=== PATIENT | female | born 1995 | race Caucasian/White ===

== ENCOUNTER → 2018-06-25 | Outpatient (CLI) | payer SELFPAY ==
[~2018-06-25] MED LIST: CYCL10TA9 PO
--- NOTE | 2018-06-25 15:21 | Diagnostic Imaging Report ---
PROCEDURE: US Non-OB pelvis comp/trans. TECHNIQUE: Multiple realtime grayscale images were obtained of the pelvis in various projections endovaginally. Transabdominal imaging was also performed. INDICATION: Pelvic pain. FINDINGS: The uterus measures 6.8 x 4.1 x 3.5 cm. The endometrium is 6 mm in thickness. No myometrial mass is seen. The right ovary measures 4.2 x 2.4 x 2.4 cm, and the left ovary measures 3.9 x 2.8 x 2.8 cm. Both ovaries contain small follicles. No adnexal mass or free fluid is seen. IMPRESSION: Unremarkable pelvic ultrasound. Dictated by: Dictated on workstation # [id number]
== END ==
LOC: RAD 13:35
PROVIDERS: ATTEND Nurse Practitioner Family
DX: N92.6 Irregular menstruation, unspecified (principal)
CPT/HCPCS: 76830; 76856

== ENCOUNTER 2019-04-21 05:25 | Emergency (ER) | payer SELFPAY ==
[~2019-04-21] VITALS: Ht 170.2 cm; Wt 128.4 kg
--- OUTSIDE RECORDS SUMMARY | 2019-04-21 05:31 | XMS REPORT ---
Author Author Migration, Doctor Organization [facility] Address Unknown Phone Unavailable Care Team Providers Care Fine Wire Drawer Name Role Phone Migration, Doctor Unavailable Unavailable PROBLEMS Type Condition ICD9-CM Code DZH17-AY Code Onset Dates Condition Status SNOMED Code Problem Thrombocytosis D47.3 Active 7347778 Problem Morbid (severe) obesity due to excess calories E66.01 Active 646168578 Problem Mild intermittent asthma without complication J45.20 Active 834604309 Problem Irregular uterine bleeding N92.6 Active 95215866 Problem Insulin resistance E88.81 Active 621719981 Problem Carpal tunnel syndrome on left G56.02 Active 700494400803536 Problem Body mass index (BMI) of 40.0-44.9 in adult Z68.41 Active 516910561 ALLERGIES No Information ENCOUNTERS Encounter Location Date Diagnosis [place] [id number] [place] [address] Feb, Exercise counseling Z71.82 [place] [address] [address] Feb, Exercise counseling Z71.82 [place] [id number] [place] [address] Feb, Exercise counseling Z71.82 [place] [id number] [place] [address] Jan, Exercise counseling Z71.82 [place] [id number] [place] [address] Jan, Exercise counseling Z71.82 [place] [id number] [place] [address] Jan, Insulin resistance E88.81 and Morbid (severe) obesity due to excess calories E66.01 [place] [id number] [place] [address] Dec, BMI 40.0-44.9, adult Z68.41 ; Insulin resistance E88.81 ; Morbid (severe) obesity due to excess calories E66.01 and Mild intermittent asthma without complication J45.20 [place] [id number] [place] [address] 05 Jul, 2018 Cough R05 ; Seasonal allergic rhinitis, unspecified trigger J30.2 and BMI 40.0-44.9, adult Z68.41 [place] [address] [address] 28 Jun, 2018 Acute bronchitis, unspecified organism J20.9 ; Screening for tuberculosis Z11.1 ; Body mass index (BMI) of 40.0-44.9 in adult Z68.41 and Morbid (severe) obesity due to excess calories E66.01 [place] [id number] [place] [address] May, Irregular uterine bleeding N92.6 ; Carpal tunnel syndrome on left G56.02 and BMI 40.0-44.9, adult Z68.41 [place] [address] [address] March, Left facial numbness R20.0 ; Neck pain M54.2 and BMI 40.0-44.9, adult Z68.41 [place] [id number] [place] [address] Dec, [place] [address] [address] Nov, Insulin resistance E88.81 ; Obesity (BMI 30-39.9) E66.9 ; Irregular uterine bleeding N92.6 and Thrombocytosis D47.3 [place] [id number] [place] [address] Nov, Insulin resistance E88.81 ; Obesity (BMI 30-39.9) E66.9 ; Irregular uterine bleeding N92.6 and Thrombocytosis D47.3 [facility] [id number] [place] [address] Oct, Sore throat J02.9 and Acute non-recurrent maxillary sinusitis J01.00 [place] [id number] [place] [address] 10 Sep, 2017 Encounter for immunization Z23 [address] [address] 08 Jul, 2017 Exposure to STD Z20.2 ; Unprotected sexual intercourse Z72.51 and Obesity (BMI 30-39.9) E66.9 [place] [address] [address] Jul, [place] [address] [address] Apr, [place] [address] [address] March, Insulin resistance E88.81 ; 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 and Morbid (severe) obesity due to excess calories E66.01 [place] [address] [address] Jan, Acute pain of left knee M25.562 and Morbid (severe) obesity due to excess calories E66.01 [place] [id number] [place] [address] Dec, Morbid (severe) obesity due to excess calories E66.01 ; Insulin resistance E88.81 ; 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 and Irregular uterine bleeding N92.6 [facility] [id number] [place] [address] Jul, Asthma exacerbation J45.901 [place] [id number] [place] [address] Jun, [place] [address] [address] May, Insulin resistance E88.81 ; Body mass index (BMI) of 40.0-44.9 in adult Z68.41 and 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 [facility] [id number] [place] [address] May, [facility] [id number] [place] [address] March, [facility] [id number] [place] [address] March, Routine health maintenance Z00.00 ; Body mass index (BMI) of 40.0- 44.9 in adult Z68.41 ; Morbid (severe) obesity due to excess calories E66.01 ; Family history of diabetes mellitus Z83.3 ; Family history of cancer Z80.9 ; Family history of heart disease Z82.49 ; Encounter for oral contraception initial prescription Z30.011 and Irregular uterine bleeding N92.6 [place] [id number] [place] [address] March, Sinusitis 473.9 and Allergic rhinitis 477.9 [place] [id number] [place] [address] Feb, [place] [id number] [place] [address] Feb, [place] [address] [address] Jul, [facility] [id number] [place] [address] Jul, [place] [id number] [place] [address] Jun, [place] [id number] [place] [address] Jun, [facility] [address], [place] [address] Oct, [facility] [id number] [place] [address] Oct, [facility] [address] [id number] [place] [address] Aug, [facility] [address] [id number] [place] [address] Aug, [facility] [address] [id number] [place] [address] Aug, [facility] [address] [id number] [place] [address] Aug, [facility] [address] [id number] [place] [address] Aug, [facility] [address] [id number] [place] [address] Aug, [facility] [address] [id number] [place] [address] Jul, [facility] [address] [id number] [place] [address] Nov, [facility] [address] [id number] [place] [address] Nov, [facility] [address] [id number] [place] [address] Nov, [facility] [address] [id number] [place] [address] Aug, [facility] [address] [id number] [place] [address] Jun, [facility] [place] [facility] [address] [id number] [place] [address] Jun, [facility] [place] [facility] [address] [id number] [place] [address] Apr, [facility] [address] [id number] [place] [address] Feb, [facility] [address] [facility] [id number] [place] [address] Feb, [facility] [address] [facility] [id number] [place] [address] Nov, [facility] [address] [facility] [id number] [place] [address] Nov, IMMUNIZATIONS No Known Immunizations SOCIAL HISTORY Never Assessed REASON FOR VISIT EMR-[facility] PLAN OF CARE VITAL SIGNS MEDICATIONS Unknown Medications RESULTS No Results PROCEDURES No Known procedures INSTRUCTIONS MEDICATIONS ADMINISTERED No Known Medications MEDICAL (GENERAL) HISTORY Type Description Date Medical History ASTHMA Medical History PCOS Medical History Carpal tunnel- left wrist Medical History Hyperhidrosis Surgical History No know Surgical history
--- OUTSIDE RECORDS SUMMARY | 2019-04-21 05:31 | XMS REPORT ---
Author Author Migration, Doctor Organization [facility] Address Unknown Phone Unavailable Care Team Providers Care Driver Helper Name Role Phone Migration, Doctor Unavailable Unavailable PROBLEMS Type Condition ICD9-CM Code GNZ46-FS Code Onset Dates Condition Status SNOMED Code Problem Thrombocytosis D47.3 Active 4086876 Problem Morbid (severe) obesity due to excess calories E66.01 Active 827183504 Problem Mild intermittent asthma without complication J45.20 Active 609099292 Problem Irregular uterine bleeding N92.6 Active 00552543 Problem Insulin resistance E88.81 Active 133378642 Problem Carpal tunnel syndrome on left G56.02 Active 976189926967428 Problem Body mass index (BMI) of 40.0-44.9 in adult Z68.41 Active 657548291 ALLERGIES No Information ENCOUNTERS Encounter Location Date Diagnosis [place] [id number] [place] [address] Feb, Exercise counseling Z71.82 [place] [address] [address] Feb, Exercise counseling Z71.82 [place] [id number] [place] [address] Feb, Exercise counseling Z71.82 [place] [id number] [place] [address] Jan, Exercise counseling Z71.82 [place] [id number] [place] [address] Jan, Exercise counseling Z71.82 [place] [address] [address] Jan, Insulin resistance E88.81 and Morbid (severe) obesity due to excess calories E66.01 [place] [id number] [place] [address] Dec, BMI 40.0-44.9, adult Z68.41 ; Insulin resistance E88.81 ; Morbid (severe) obesity due to excess calories E66.01 and Mild intermittent asthma without complication J45.20 [place] [id number] [place] [address] 05 Jul, 2018 Cough R05 ; Seasonal allergic rhinitis, unspecified trigger J30.2 and BMI 40.0-44.9, adult Z68.41 [place] [address] [address] 28 Jun, 2018 Acute bronchitis, unspecified organism J20.9 ; Screening for tuberculosis Z11.1 ; Body mass index (BMI) of 40.0-44.9 in adult Z68.41 and Morbid (severe) obesity due to excess calories E66.01 [place] [id number] [place] [address] May, Irregular uterine bleeding N92.6 ; Carpal tunnel syndrome on left G56.02 and BMI 40.0-44.9, adult Z68.41 [place] [address] [address] March, Left facial numbness R20.0 ; Neck pain M54.2 and BMI 40.0-44.9, adult Z68.41 [place] [id number] [place] [address] Dec, [place] [address] [address] Nov, Insulin resistance E88.81 ; Obesity (BMI 30-39.9) E66.9 ; Irregular uterine bleeding N92.6 and Thrombocytosis D47.3 [place] [id number] [place] [address] Nov, Insulin resistance E88.81 ; Obesity (BMI 30-39.9) E66.9 ; Irregular uterine bleeding N92.6 and Thrombocytosis D47.3 [facility] [id number] [place] [address] Oct, Sore throat J02.9 and Acute non-recurrent maxillary sinusitis J01.00 [place] [id number] [place] [address] 10 Sep, 2017 Encounter for immunization Z23 [address] [address] 08 Jul, 2017 Exposure to STD Z20.2 ; Unprotected sexual intercourse Z72.51 and Obesity (BMI 30-39.9) E66.9 [place] [address] [address] Jul, [place] [address] [address] Apr, [place] [address] [address] March, Insulin resistance E88.81 ; 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901 [place] [id number] [place] [address] Jun, [place] [address] [address] May, Insulin resistance E88.81 ; Body mass index (BMI) of 40.0-44.9 in adult Z68.41 and 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 [facility] [id number] [place] [address] May, [facility] [address] [place] [address] March, [facility] [id number] [place] [address] March, Routine health maintenance Z00.00 ; Body mass index (BMI) of 40.0- 44.9 in adult Z68.41 ; Morbid (severe) obesity due to excess calories E66.01 ; Family history of diabetes mellitus Z83.3 ; Family history of cancer Z80.9 ; Family history of heart disease Z82.49 ; Encounter for oral contraception initial prescription Z30.011 and Irregular uterine bleeding N92.6 [place] [id number] [place] [address] March, Sinusitis 473.9 and Allergic rhinitis 477.9 [place] [id number] [place] [address] Feb, [place] [id number] [place] [address] Feb, [place] [address] [address] Jul, [facility] [id number] [place] [address] Jul, [place] [address] [place] [address] Jun, [place] [address] [place] [address] Jun, [facility] [address] [address] Oct, [facility] [id number] [address] Oct, [facility] [address] [id number] [place] [address] Aug, [facility] [address] [id number] [place] [address] Aug, [facility] [address] [id number] [place] [address] Aug, [facility] [address] [id number] [place] [address] Aug, [facility] [address] [id number] [place] [address] Aug, [facility] [address] [id number] [place] [address] Aug, [facility] [address] [id number] [place] [address] Jul, [facility] [address] [id number] [place] [address] Nov, [facility] [address] [id number] [place] [address] Nov, [facility] [address] [id number] [place] [address] Nov, [facility] [address] [id number] [place] [address] Aug, [facility] [address] [id number] [place] [address] Jun, [facility] [place] [facility] [address] [id number] [place] [address] Jun, [facility] [place] [facility] [address] [id number] [place] [address] Apr, [facility] [address] [id number] [place] [address] Feb, [facility] [address] [facility] [id number] [place] [address] Feb, [facility] [address] [facility] [id number] [place] [address] Nov, [facility] [address] [facility] [id number] [place] [address] Nov, IMMUNIZATIONS No Known Immunizations SOCIAL HISTORY Never Assessed REASON FOR VISIT [place] [place] VITAL SIGNS MEDICATIONS Unknown Medications RESULTS No Results PROCEDURES No Known procedures INSTRUCTIONS MEDICATIONS ADMINISTERED No Known Medications MEDICAL (GENERAL) HISTORY Type Description Date Medical History ASTHMA Medical History PCOS Medical History Carpal tunnel- left wrist Medical History Hyperhidrosis Surgical History No know Surgical history
--- OUTSIDE RECORDS SUMMARY | 2019-04-21 05:32 | XMS REPORT ---
Author Author FELTON GALVEZ Organization [facility] Address [address] [place] [address] Care Team Providers Care Section Housekeeper Name Role Phone LEONOR FELTON Unavailable PROBLEMS Type Condition ICD9-CM Code [id number] Code Onset Dates Condition Status SNOMED Code Problem Morbid (severe) obesity due to excess calories E66.01 Active 099882098 Problem Body mass index (BMI) of 40.0-44.9 in adult Z68.41 Active 255107901 Problem Irregular uterine bleeding N92.6 Active 93407861 Problem Thrombocytosis D47.3 Active 4831676 Problem Carpal tunnel syndrome on left G56.02 Active 965838537232457 Problem Insulin resistance E88.81 Active 107101161 ALLERGIES No Known Allergies ENCOUNTERS Encounter Location Date Diagnosis [facility] [id number] [place] [address] Jul, Cough R05 ; Seasonal allergic rhinitis, unspecified trigger J30.2 and BMI 40.0-44.9, adult Z68.41 [facility] [id number] [place] [address] Jun, Acute bronchitis, unspecified organism J20.9 ; Screening for tuberculosis Z11.1 ; Body mass index (BMI) of 40.0-44.9 in adult Z68.41 and Morbid (severe) obesity due to excess calories E66.01 [facility] [id number] [place] [address] May, Irregular uterine bleeding N92.6 ; Carpal tunnel syndrome on left G56.02 and BMI 40.0-44.9, adult Z68.41 [facility] [address] [place] [address] March, Left facial numbness R20.0 ; Neck pain M54.2 and BMI 40.0-44.9, adult Z68.41 [facility] [address] [address] Dec, [place] [address] [address] Nov, Insulin resistance E88.81 ; Obesity (BMI 30-39.9) E66.9 ; Irregular uterine bleeding N92.6 and Thrombocytosis D47.3 [place] [address] [address] Nov, Insulin resistance E88.81 ; Obesity (BMI 30-39.9) E66.9 ; Irregular uterine bleeding N92.6 and Thrombocytosis D47.3 [facility] [address] [address] Oct, Sore throat J02.9 and Acute non-recurrent maxillary sinusitis J01.00 [place] [id number] [place] [address] 10 Sep, 2017 Encounter for immunization Z23 [address] [address] 08 Jul, 2017 Exposure to STD Z20.2 ; Unprotected sexual intercourse Z72.51 and Obesity (BMI 30-39.9) E66.9 [place] [address] [address] Jul, [place] [address] [address] Apr, [address] [address] March, Insulin resistance E88.81 ; 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 and Morbid (severe) obesity due to excess calories E66.01 [place] [id number] [place] [address] 30 Mar, 2017 Acute pain of left knee M25.562 and Morbid (severe) obesity due to excess calories E66.01 [facility] [address] [place] [address] 09 Dec, 2016 Morbid (severe) obesity due to excess calories E66.01 ; Insulin resistance E88.81 ; 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 and Irregular uterine bleeding N92.6 [facility] [id number] [place] [address] Jul, Asthma exacerbation J45.901 [facility] [id number] [place] [address] Jun, [place] [id number] [place] [address] May, Insulin resistance E88.81 ; Body mass index (BMI) of 40.0-44.9 in adult Z68.41 and 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 [place] [id number] [place] [address] May, [facility] [id number] [place] [address] March, [place] [id number] [place] [address] March, Routine health maintenance Z00.00 ; Body mass index (BMI) of 40.0- 44.9 in adult Z68.41 ; Morbid (severe) obesity due to excess calories E66.01 ; Family history of diabetes mellitus Z83.3 ; Family history of cancer Z80.9 ; Family history of heart disease Z82.49 ; Encounter for oral contraception initial prescription Z30.011 and Irregular uterine bleeding N92.6 [place] [id number] [place] [address] March, Sinusitis 473.9 and Allergic rhinitis 477.9 [place] [id number] [place] [address] Feb, [place] [address] [place] [id number] [address] 13 Feb, 2015 [facility] [address] [id number] [place] [address] 18 Jul, 2014 [facility] [place] [facility] [address] [id number] [place] [address] Jul, [facility] [address] [id number] [place] [address] Jun, [facility] [place] [facility] [address] [id number] [place] [address] Jun, [facility] [address] [id number] [place] [address] Oct, [facility] [address] [id number] [place] [address] Oct, [facility] [address] [id number] [place] [address] Aug, [facility] [address] [id number] [place] [address] Aug, [facility] [place] [facility] [address] [id number] [place] [address] Aug, [facility] [address] [id number] [place] [address] 18 Aug, 2013 [facility] [place] [facility] [address] [id number] [place] [address] Aug, [facility] [address] [id number] [place] [address] Aug, [facility] [place] [facility] [address] [id number] [place] [address] Jul, [facility] [place] [facility] [address] [id number] [place] [address] Nov, [facility] [place] [facility] [address] [id number] [place] [address] Nov, [facility] [id number] [address] Nov, [facility] [address] [address] Aug, [facility] [id number] [address] Jun, [facility] [address] [address] Jun, [facility] [id number] [address] Apr, [facility] [address] [address] Feb, [facility] [address] [address] Feb, [facility] [address] [address] Nov, [facility] [id number] [address] Nov, IMMUNIZATIONS No Known Immunizations SOCIAL HISTORY Never Assessed REASON FOR VISIT Pt states that she seen Hortencia last week for sinus infection but it has not go tten any better. She states she is so congested that when she tries to lay down she feels like she can't breath. JOLANTA Vilchis, pt needs a new script for her Albu terol inhaler. (she states not the powder one , she needs the one with the mist) JOLANTA Vilchis PLAN OF CARE Activity Details Follow Up 1-2 weeks if not better Reason:cough VITAL SIGNS Height 67 in 2018-07-28 Weight 266.0 lbs 2018-07-28 Temperature 98.8 degrees Fahrenheit 2018-07-28 Heart Rate 91 bpm 2018-07-28 Respiratory Rate 20 2018-07-28 BMI 41.66 kg/m2 2018-07-28 Blood pressure systolic 128 mmHg 2018-07-28 Blood pressure diastolic 78 mmHg 2018-07-28 MEDICATIONS Medication Instructions Dosage Frequency Start Date End Date Duration Status Sudafed 30 MG Orally every 6 hrs 1 tablet as needed 6h Jul, 03 days Active ProAir RespiClick 108 (90 Base) MCG/ACT Inhalation every 4 hrs 1 puff as needed 4h Jul, 12 months Active Fluticasone Propionate 50 MCG/ACT Nasally Once a day 1 spray in each nostril 24h Jul, 30 day(s) Active Benadryl Allergy 25 MG Orally every 8 hrs 1 tablet as needed 8h Active RESULTS Name Result Date Reference Range Xray : Chest 2 View (IN HOUSE) 2018-07-28 PROCEDURES Procedure Date Ordered Result Body Site X-RAY EXAM CHEST 2 VIEWS Jul 28, 2018 INSTRUCTIONS MEDICATIONS ADMINISTERED No Known Medications MEDICAL (GENERAL) HISTORY Type Description Date Medical History ASTHMA Medical History PCOS Medical History Carpal tunnel- left wrist Medical History Hyperhidrosis
--- OUTSIDE RECORDS SUMMARY | 2019-04-21 05:32 | XMS REPORT ---
Author Author Migration, Doctor Organization [facility] Address Unknown Phone Unavailable Care Team Providers Care Small Package And Bundle Sorter Clerk Name Role Phone Migration, Doctor Unavailable Unavailable PROBLEMS Type Condition ICD9-CM Code [id number] Code Onset Dates Condition Status SNOMED Code Problem Thrombocytosis D47.3 Active 8024231 Problem Morbid (severe) obesity due to excess calories E66.01 Active 668905399 Problem Mild intermittent asthma without complication J45.20 Active 226150539 Problem Irregular uterine bleeding N92.6 Active 51894228 Problem Insulin resistance E88.81 Active 059950823 Problem Carpal tunnel syndrome on left G56.02 Active 012913316321630 Problem Body mass index (BMI) of 40.0-44.9 in adult Z68.41 Active 898779615 ALLERGIES No Information ENCOUNTERS Encounter Location Date Diagnosis [place] [id number] [place] [address] Feb, Exercise counseling Z71.82 [place] [address] [address] Feb, Exercise counseling Z71.82 [place] [id number] [place] [address] Feb, Exercise counseling Z71.82 [place] [id number] [place] [address] Jan, Exercise counseling Z71.82 [place] [id number] [place] [address] Jan, Exercise counseling Z71.82 [place] [address] [address] Jan, Insulin resistance E88.81 and Morbid (severe) obesity due to excess calories E66.01 [place] [id number] [place] [address] Dec, BMI 40.0-44.9, adult Z68.41 ; Insulin resistance E88.81 ; Morbid (severe) obesity due to excess calories E66.01 and Mild intermittent asthma without complication J45.20 [place] [id number] [place] [address] 05 Jul, 2018 Cough R05 ; Seasonal allergic rhinitis, unspecified trigger J30.2 and BMI 40.0-44.9, adult Z68.41 [place] [address] [address] 28 Jun, 2018 Acute bronchitis, unspecified organism J20.9 ; Screening for tuberculosis Z11.1 ; Body mass index (BMI) of 40.0-44.9 in adult Z68.41 and Morbid (severe) obesity due to excess calories E66.01 [place] [id number] [place] [address] May, Irregular uterine bleeding N92.6 ; Carpal tunnel syndrome on left G56.02 and BMI 40.0-44.9, adult Z68.41 [place] [address] [address] March, Left facial numbness R20.0 ; Neck pain M54.2 and BMI 40.0-44.9, adult Z68.41 [place] [id number] [place] [address] Dec, [place] [address] [address] Nov, Insulin resistance E88.81 ; Obesity (BMI 30-39.9) E66.9 ; Irregular uterine bleeding N92.6 and Thrombocytosis D47.3 [place] [id number] [place] [address] Nov, Insulin resistance E88.81 ; Obesity (BMI 30-39.9) E66.9 ; Irregular uterine bleeding N92.6 and Thrombocytosis D47.3 [facility] [id number] [place] [address] Oct, Sore throat J02.9 and Acute non-recurrent maxillary sinusitis J01.00 [place] [id number] [place] [address] 10 Sep, 2017 Encounter for immunization Z23 [address] [address] 08 Jul, 2017 Exposure to STD Z20.2 ; Unprotected sexual intercourse Z72.51 and Obesity (BMI 30-39.9) E66.9 [place] [address] [address] Jul, [place] [address] [address] Apr, [place] [address] [address] March, Insulin resistance E88.81 ; 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 [facility] [id number] [place] [address] May, [facility] [address] [place] [address] March, [facility] [id number] [place] [address] March, Routine health maintenance Z00.00 ; Body mass index (BMI) of 40.0- 44.9 in adult Z68.41 ; Morbid (severe) obesity due to excess calories E66.01 ; Family history of diabetes mellitus Z83.3 ; Family history of cancer Z80.9 ; Family history of heart disease Z82.49 ; Encounter for oral contraception initial prescription Z30.011 and Irregular uterine bleeding N92.6 [place] [id number] [place] [address] March, Sinusitis 473.9 and Allergic rhinitis 477.9 [place] [id number] [place] [address] Feb, [place] [id number] [place] [address] Feb, [place] [address] [address] Jul, [facility] [id number] [place] [address] Jul, [place] [address] [place] [address] Jun, [place] [address] [place] [address] Jun, [facility] [address] [address] Oct, [facility] [id number] [place] [address] Oct, [facility] [address] [id number] [place] [address] Aug, [facility] [address] [id number] [place] [address] Aug, [facility] [address] [id number] [place] [address] Aug, [facility] [address] [id number] [place] [address] Aug, [facility] [address] [id number] [place] [address] Aug, [facility] [address] [id number] [place] [address] Aug, [facility] [address] [id number] [place] [address] Jul, [facility] [address] [id number] [place] [address] Nov, [facility] [address] [id number] [place] [address] Nov, [facility] [address] [id number] [place] [address] Nov, [facility] [address] [id number] [place] [address] Aug, [facility] [address] [id number] [place] [address] Jun, [facility] [place] [facility] [address] [id number] [place] [address] Jun, [facility] [place] [facility] [address] [id number] [place] [address] Apr, [facility] [address] [id number] [place] [address] Feb, [facility] [address] [facility] [id number] [place] [address] Feb, [facility] [address] [facility] [id number] [place] [address] Nov, [facility] [address] [facility] [id number] [place] [address] Nov, IMMUNIZATIONS No Known Immunizations SOCIAL HISTORY Never Assessed REASON FOR VISIT [facility] PLAN OF CARE VITAL SIGNS MEDICATIONS Unknown Medications RESULTS No Results PROCEDURES No Known procedures INSTRUCTIONS MEDICATIONS ADMINISTERED No Known Medications MEDICAL (GENERAL) HISTORY Type Description Date Medical History ASTHMA Medical History PCOS Medical History Carpal tunnel- left wrist Medical History Hyperhidrosis Surgical History No know Surgical history
--- OUTSIDE RECORDS SUMMARY | 2019-04-21 05:32 | XMS REPORT ---
Author Author Migration, Doctor Organization [facility] Address Unknown Phone Unavailable Care Team Providers Care Information Assurance Manager Name Role Phone Migration, Doctor Unavailable Unavailable PROBLEMS Type Condition ICD9-CM Code [id number] Code Onset Dates Condition Status SNOMED Code Problem Thrombocytosis D47.3 Active 0707871 Problem Morbid (severe) obesity due to excess calories E66.01 Active 656193183 Problem Mild intermittent asthma without complication J45.20 Active 552896464 Problem Irregular uterine bleeding N92.6 Active 02774544 Problem Insulin resistance E88.81 Active 435318486 Problem Carpal tunnel syndrome on left G56.02 Active 372793070720740 Problem Body mass index (BMI) of 40.0-44.9 in adult Z68.41 Active 158938008 ALLERGIES No Information ENCOUNTERS Encounter Location Date Diagnosis [place] [id number] [place] [address] Jan, Insulin resistance E88.81 and Morbid (severe) obesity due to excess calories E66.01 [place] [id number] [place] [address] 27 Dec, 2018 BMI 40.0-44.9, adult Z68.41 ; Insulin resistance E88.81 ; Morbid (severe) obesity due to excess calories E66.01 and Mild intermittent asthma without complication J45.20 [place] [id number] [place] [address] 05 Jul, 2018 Cough R05 ; Seasonal allergic rhinitis, unspecified trigger J30.2 and BMI 40.0-44.9, adult Z68.41 [place] [id number] [place] [address] Jun, Acute bronchitis, unspecified organism J20.9 ; Screening for tuberculosis Z11.1 ; Body mass index (BMI) of 40.0-44.9 in adult Z68.41 and Morbid (severe) obesity due to excess calories E66.01 [facility] [id number] [place] [address] 27 May, 2018 Irregular uterine bleeding N92.6 ; Carpal tunnel syndrome on left G56.02 and BMI 40.0-44.9, adult Z68.41 [facility] [id number] [place] [address] 10 Mar, 2018 Left facial numbness R20.0 ; Neck pain M54.2 and BMI 40.0-44.9, adult Z68.41 [facility] [id number] [place] [address] Dec, [place] [address] [address] Nov, Insulin resistance E88.81 ; Obesity (BMI 30-39.9) E66.9 ; Irregular uterine bleeding N92.6 and Thrombocytosis D47.3 [place] [address] [address] Nov, Insulin resistance E88.81 ; Obesity (BMI 30-39.9) E66.9 ; Irregular uterine bleeding N92.6 and Thrombocytosis D47.3 [facility] [id number] [place] [address] 16 Oct, 2017 Sore throat J02.9 and Acute non-recurrent maxillary sinusitis J01.00 [place] [id number] [place] [address] 10 Sep, 2017 Encounter for immunization Z23 [address] [address] 08 Jul, 2017 Exposure to STD Z20.2 ; Unprotected sexual intercourse Z72.51 and Obesity (BMI 30-39.9) E66.9 [place] [id number] [place] [address] 08 Jul, 2017 [facility] [address] [place] [address] Apr, [facility] [address] [place] [address] March, Insulin resistance E88.81 ; 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 and Morbid (severe) obesity due to excess calories E66.01 [place] [address] [place] [address] Jan, Acute pain of left knee M25.562 and Morbid (severe) obesity due to excess calories E66.01 [facility] [id number] [place] [address] Dec, Morbid (severe) obesity due to excess calories E66.01 ; Insulin resistance E88.81 ; 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 and Irregular uterine bleeding N92.6 [facility] [id number] [place] [address] Jul, Asthma exacerbation J45.901 [place] [id number] [place] [address] Jun, [place] [id number] [place] [address] May, Insulin resistance E88.81 ; Body mass index (BMI) of 40.0-44.9 in adult Z68.41 and 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 [place] [id number] [place] [address] May, [place] [id number] [place] [address] March, [place] [id number] [place] [address] March, Routine health maintenance Z00.00 ; Body mass index (BMI) of 40.0- 44.9 in adult Z68.41 ; Morbid (severe) obesity due to excess calories E66.01 ; Family history of diabetes mellitus Z83.3 ; Family history of cancer Z80.9 ; Family history of heart disease Z82.49 ; Encounter for oral contraception initial prescription Z30.011 and Irregular uterine bleeding N92.6 [facility] [id number] [place] [address] March, Sinusitis 473.9 and Allergic rhinitis 477.9 [facility] [id number] [place] [address] 14 Feb, 2015 [facility] [id number] [place] [address] Feb, [facility] [id number] [place] [address] Jul, [facility] [id number] [place] [address] Jul, [facility] [id number] [place] [address] Jun, [facility] [id number] [place] [address] Jun, [facility] [id number] [place] [address] Oct, [facility] [id number] [place] [address] Oct, [facility] [address] [place] [address] Aug, [facility] [id number] [place] [address] Aug, [facility] [id number] [place] [address] Aug, [facility] [id number] [place] [address] Aug, [facility] [address] [address] Aug, [facility] [address] [place] [address] Aug, [facility] [address] [place] [address] Jul, [facility] [id number] [address] Nov, [facility] [address] [place] [address] Nov, [facility] [address] [facility] [id number] [address] Nov, [facility] [address] [place] [address] Aug, [facility] [address] [place] [address] Jun, [facility] [address], [place] [address] Jun, [facility] [address] [place] [address] Apr, [facility] [address] [place] [address] Feb, [facility] [id number] [address] Feb, [facility] [address], [place] [address] Nov, [facility] [id number], [place] [address] Nov, IMMUNIZATIONS No Known Immunizations SOCIAL HISTORY [...]
--- OUTSIDE RECORDS SUMMARY | 2019-04-21 05:32 | XMS REPORT ---
Author Author Migration, Doctor Organization [facility] Address Unknown Phone Unavailable Care Team Providers Care Ceiling Insulation Blower Name Role Phone Migration, Doctor Unavailable Unavailable PROBLEMS Type Condition ICD9-CM Code XQY25-JE Code Onset Dates Condition Status SNOMED Code Problem Thrombocytosis D47.3 Active 1005139 Problem Morbid (severe) obesity due to excess calories E66.01 Active 793882887 Problem Mild intermittent asthma without complication J45.20 Active 846016450 Problem Irregular uterine bleeding N92.6 Active 43678989 Problem Insulin resistance E88.81 Active 371098268 Problem Carpal tunnel syndrome on left G56.02 Active 789953338635307 Problem Body mass index (BMI) of 40.0-44.9 in adult Z68.41 Active 154922336 ALLERGIES No Information ENCOUNTERS Encounter Location Date Diagnosis [facility] [id number] [place] [address] Feb, [facility] [id number] [place] [address] Feb, [facility] [id number] [place] [address] Feb, [facility] [id number] [place] [address] Feb, [facility] [id number] [place] [address] Feb, Exercise counseling Z71.82 [facility] [id number] [place] [address] Feb, Exercise counseling Z71.82 [facility] [id number] [place] [address] Jan, Exercise counseling Z71.82 [facility] [id number] [place] [address] Jan, Exercise counseling Z71.82 [place] [id number] [place] [address] Jan, Insulin resistance E88.81 and Morbid (severe) obesity due to excess calories E66.01 [place] [id number] [place] [address] Dec, BMI 40.0-44.9, adult Z68.41 ; Insulin resistance E88.81 ; Morbid (severe) obesity due to excess calories E66.01 and Mild intermittent asthma without complication J45.20 [place] [address] [address] Jul, Cough R05 ; Seasonal allergic rhinitis, unspecified trigger J30.2 and BMI 40.0-44.9, adult Z68.41 [place] [address] [address] Jun, Acute bronchitis, unspecified organism J20.9 ; Screening for tuberculosis Z11.1 ; Body mass index (BMI) of 40.0-44.9 in adult Z68.41 and Morbid (severe) obesity due to excess calories E66.01 [place] [id number] [place] [address] May, Irregular uterine bleeding N92.6 ; Carpal tunnel syndrome on left G56.02 and BMI 40.0-44.9, adult Z68.41 [place] [id number] [place] [address] March, Left facial numbness R20.0 ; Neck pain M54.2 and BMI 40.0-44.9, adult Z68.41 [place] [id number] [place] [address] Dec, [place] [id number] [place] [address] Nov, Insulin resistance E88.81 ; Obesity (BMI 30-39.9) E66.9 ; Irregular uterine bleeding N92.6 and Thrombocytosis D47.3 [place] [id number] [place] [address] Nov, Insulin resistance E88.81 ; Obesity (BMI 30-39.9) E66.9 ; Irregular uterine bleeding N92.6 and Thrombocytosis D47.3 [facility] [place] [address] [address] Oct, Sore throat J02.9 and Acute non-recurrent maxillary sinusitis J01.00 [place] [address] [address] Sep, Encounter for immunization Z23 [place] [address] [address] 08 Jul, 2017 Exposure to STD Z20.2 ; Unprotected sexual intercourse Z72.51 and Obesity (BMI 30-39.9) E66.9 [place] [address] [address] Jul, [place] [address] [address] Apr, [place] [address] [address] March, Insulin resistance E88.81 ; 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 and Morbid (severe) obesity due to excess calories E66.01 [place] [id number] [place] [address] Jan, Acute pain of left knee M25.562 and Morbid (severe) obesity due to excess calories E66.01 [place] [address] [address] 09 Dec, 2016 Morbid (severe) obesity due to excess calories E66.01 ; Insulin resistance E88.81 ; 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 and Irregular uterine bleeding N92.6 [facility] [address] [place] [address] Jul, Asthma exacerbation J45.901 [facility] [id number] [place] [address] Jun, [facility] [id number] [place] [address] May, Insulin resistance E88.81 ; Body mass index (BMI) of 40.0-44.9 in adult Z68.41 and 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 [place] [address] [address] May, [place] [address] [address] March, [place] [address] [address] March, Routine health maintenance Z00.00 ; Body mass index (BMI) of 40.0- 44.9 in adult Z68.41 ; Morbid (severe) obesity due to excess calories E66.01 ; Family history of diabetes mellitus Z83.3 ; Family history of cancer Z80.9 ; Family history of heart disease Z82.49 ; Encounter for oral contraception initial prescription Z30.011 and Irregular uterine bleeding N92.6 [place] [id number] [place] [address] March, Sinusitis 473.9 and Allergic rhinitis 477.9 [place] [id number] [place] [address] Feb, [place] [id number] [place] [address] Feb, [place] [address] [address] Jul, [place] [id number] [place] [address] Jul, [place] [address] [place] [address] Jun, [facility] [address] [id number] [place] [address] Jun, [facility] [place] [facility] [address] [id number] [place] [address] Oct, [facility] [place] [facility] [address] [id number] [place] [address] Oct, [facility] [place] [facility] [address] [id number] [place] [address] Aug, [facility] [place] [facility] [address] [id number] [place] [address] Aug, [facility] [place] [facility] [address] [id number] [place] [address] Aug, [facility] [place] [facility] [address] [id number] [place] [address] Aug, [facility] [place] [facility] [address] [id number] [place] [address] Aug, [facility] [place] [facility] [address] [id number] [place] [address] Aug, [facility] [place] [facility] [address] [id number] [place] [address] Jul, [facility] [place] [facility] [address] [id number] [place] [address] Nov, [facility] [place] [facility] [address] [id number] [address] Nov, [facility] [place] [facility] [address] [id number] [place] [address] Nov, [facility] [place] [facility] [address] [id number] [place] [address] Aug, [facility] [place] [facility] [address] [id number] [place] [address] Jun, [facility] [place] [facility] [address] [facility] [id number] [address] Jun, [facility] [id number] [address] Apr, [facility] [id number] [address] Feb, [facility] [id number] [address] Feb, [facility] [address] [facility] [id number], [place] [address] Nov, [facility] [id number] [address] Nov, IMMUNIZATIONS No Known Immunizations SOCIAL HISTORY Never Assessed REASON FOR [place] [place] VITAL SIGNS MEDICATIONS Medication Instructions Dosage Frequency Start Date End Date Duration Status Medrol (Cresencio) 4 mg take tapering dose of 6-1 Tablet by Oral route 1 per day. Take each days dose at one time Jun, Active Zithromax Z-Cresencio 250 mg 2 tablet by Oral route 1 time per day for 1 days then take 1 tab daily on days 2-5 Jun, Active Flonase 50 mcg/actuation 1 sprays by Nasal route 2 times per day in each nostril Jul, Active PredniSONE 20 mg 2 tablet by Oral route 1 time per day for 5 day(s) Jul, Active Ofloxacin 0.3 % 3 drop by Otic route 2 times per day for 10 day(s) Apr, Active Bactroban 2 % 1 clair by Topical route 2 times per day for 14 day(s) Feb, Active Xerac AC 6.25 % 1 inch by Topical route every dayat night Nov, Active ProAir HFA 90 mcg/actuation inhale 2-4 puffs by Inhalation route every 4 hours as neededPRNshortness of breath/cough always use spacer Jun, Active ZyrTEC 10 mg 1 tablet by Oral route 1 time per day Jun, Active Bactrim DS 800-160 mg 1 tablet by Oral route 2 times per day for 10 day(s) Feb, Active RESULTS No Results PROCEDURES No Known procedures INSTRUCTIONS MEDICATIONS ADMINISTERED No Known Medications MEDICAL (GENERAL) HISTORY Type Description Date Medical History ASTHMA Medical History PCOS Medical History Carpal tunnel- left wrist Medical History Hyperhidrosis Surgical History No know Surgical history
--- OUTSIDE RECORDS SUMMARY | 2019-04-21 05:32 | XMS REPORT ---
Author Author MAAME NIÑO Organization [facility] Address [address] [place] [address] Care Team Providers Care Seed Pelleter Name Role Phone NIÑOMAAME Nash Unavailable PROBLEMS Type Condition ICD9-CM Code RFA85-DY Code Onset Dates Condition Status SNOMED Code Problem Morbid (severe) obesity due to excess calories E66.01 Active 113900999 Problem Body mass index (BMI) of 40.0-44.9 in adult Z68.41 Active 652256212 Problem Irregular uterine bleeding N92.6 Active 98248188 Problem Thrombocytosis D47.3 Active 4501406 Problem Carpal tunnel syndrome on left G56.02 Active 303529927038227 Problem Insulin resistance E88.81 Active 463103864 ALLERGIES No Known Allergies ENCOUNTERS Encounter Location Date Diagnosis [facility] [id number] [place] [address] Jul, Cough R05 ; Seasonal allergic rhinitis, unspecified trigger J30.2 and BMI 40.0-44.9, adult Z68.41 [facility] [id number] [place] [address] Jun, Acute bronchitis, unspecified organism J20.9 ; Screening for tuberculosis Z11.1 ; Body mass index (BMI) of 40.0-44.9 in adult Z68.41 and Morbid (severe) obesity due to excess calories E66.01 [facility] [id number] [place] [address] May, Irregular uterine bleeding N92.6 ; Carpal tunnel syndrome on left G56.02 and BMI 40.0-44.9, adult Z68.41 [facility] [id number] [place] [address] March, Left facial numbness R20.0 ; Neck pain M54.2 and BMI 40.0-44.9, adult Z68.41 [facility] [address] [address] Dec, [place] [address] [address] Nov, Insulin resistance E88.81 ; Obesity (BMI 30-39.9) E66.9 ; Irregular uterine bleeding N92.6 and Thrombocytosis D47.3 [place] [address] [address] Nov, Insulin resistance E88.81 ; Obesity (BMI 30-39.9) E66.9 ; Irregular uterine bleeding N92.6 and Thrombocytosis D47.[address] 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 [id number] [place] [address] March, [place] [id number] [place] [address] March, Routine health maintenance Z00.00 ; Body mass index (BMI) of 40.0- 44.9 in adult Z68.41 ; Morbid (severe) obesity due to excess calories E66.01 ; Family history of diabetes mellitus Z83.3 ; Family history of cancer Z80.9 ; Family history of heart disease Z82.49 ; Encounter for oral contraception initial prescription Z30.011 and Irregular uterine bleeding N92.6 [place] [id number] [place] [address] March, Sinusitis 473.9 and Allergic rhinitis 477.9 [place] [address] [address] Feb, [place] [address] [facility] [id number] [place] [address] Feb, [facility] [address] [id number] [place] [address] 18 Jul, 2014 [facility] [place] [facility] [address] [id number] [place] [address] Jul, [facility] [place] [facility] [address] [id number] [place] [address] Jun, [facility] [place] [facility] [address] [id number] [place] [address] Jun, [facility] [place] [facility] [address] [id number] [place] [address] Oct, [facility] [place] [facility] [address] [id number] [place] [address] Oct, [facility] [place] [facility] [address] [id number] [place] [address] Aug, [facility] [place] [facility] [address] [id number] [place] [address] Aug, [facility] [place] [facility] [address] [id number] [place] [address] Aug, [facility] [place] [facility] [address] [id number] [place] [address] 18 Aug, 2013 [facility] [place] [facility] [address] [id number] [place] [address] Aug, [facility] [place] [facility] [address] [id number] [place] [address] Aug, [facility] [place] [facility] [address] [id number] [place] [address] Jul, [facility] [place] [facility] [address] [id number] [place] [address] Nov, [facility] [place] [facility] [address] [id number] [place] [address] Nov, [facility] [address] [address] [id number] [address] Nov, [facility] [address] [address] Aug, [facility] [address] [address] Jun, [facility] [id number] [address] Jun, [facility] [address] [address] Apr, [facility] [id number] [place] [address] Feb, [facility] [id number] [address] Feb, [facility] [address] [address] Nov, [facility] [address], [place] [address] Nov, IMMUNIZATIONS No Known Immunizations SOCIAL HISTORY Never Assessed REASON FOR VISIT Sinus c/o- Started 1 week ago, coughing up yellow sputum- Amber Bray RN PLAN OF CARE Activity Details Follow Up 3 Months, prn Reason: VITAL SIGNS Height 67 in 2018-07-20 Weight 267 lbs 2018-07-20 Temperature 98.2 degrees Fahrenheit 2018-07-20 Heart Rate 78 bpm 2018-07-20 Respiratory Rate 16 2018-07-20 BMI 41.81 kg/m2 2018-07-20 Blood pressure systolic 110 mmHg 2018-07-20 Blood pressure diastolic 74 mmHg 2018-07-20 MEDICATIONS Medication Instructions Dosage Frequency Start Date End Date Duration Status Benadryl Allergy 25 MG Orally every 8 hrs 1 tablet as needed 8h Active PredniSONE 20 mg Orally Once a day 1 tablet 24h Jun, Jul, 05 days Active ProAir RespiClick 108 (90 Base) MCG/ACT Inhalation every 4 hrs 1 puff as needed 4h Jul, 12 months Active Azithromycin 250 MG Orally Once a day 2 tablets on the first day, then 1 tablet daily for 4 days 24h Jun, Jul, 5 day(s) Active RESULTS No Results PROCEDURES Procedure Date Ordered Result Body Site TB INTRADERMAL 2018-07-20 Negative TB INTRADERMAL TEST Jul 20, 2018 INSTRUCTIONS MEDICATIONS ADMINISTERED No Known Medications MEDICAL (GENERAL) HISTORY Type Description Date Medical History ASTHMA Medical History PCOS Medical History Carpal tunnel- left wrist Medical History Hyperhidrosis
--- OUTSIDE RECORDS SUMMARY | 2019-04-21 05:33 | XMS REPORT ---
Author Author MAAME NIÑO Organization [facility] Address [address] [place] [address] Care Team Providers Care Palliative Medicine Physician Name Role Phone NIÑOMAAME Nash Unavailable PROBLEMS Type Condition ICD9-CM Code CZS16-TK Code Onset Dates Condition Status SNOMED Code Problem Morbid (severe) obesity due to excess calories E66.01 Active 937909452 Problem Body mass index (BMI) of 40.0-44.9 in adult Z68.41 Active 534137835 Problem Irregular uterine bleeding N92.6 Active 29862348 Problem Thrombocytosis D47.3 Active 1097809 Problem Carpal tunnel syndrome on left G56.02 Active 335547643762511 Problem Insulin resistance E88.81 Active 576346512 ALLERGIES No Known Allergies ENCOUNTERS Encounter Location Date Diagnosis [facility] [id number] [place] [address] Jul, Cough R05 ; Seasonal allergic rhinitis, unspecified trigger J30.2 and BMI 40.0-44.9, adult Z68.41 [facility] [id number] [place] [address] Jun, Acute bronchitis, unspecified organism J20.9 ; Screening for tuberculosis Z11.1 ; Body mass index (BMI) of 40.0-44.9 in adult Z68.41 and Morbid (severe) obesity due to excess calories E66.01 [facility] [id number] [place] [address] May, Irregular uterine bleeding N92.6 ; Carpal tunnel syndrome on left G56.02 and BMI 40.0-44.9, adult Z68.41 [facility] [id number] [place] [address] March, Left facial numbness R20.0 ; Neck pain M54.2 and BMI 40.0-44.9, adult Z68.41 [facility] [address] [address] Dec, [place] [address] [address] Nov, Insulin resistance E88.81 ; Obesity (BMI 30-39.9) E66.9 ; Irregular uterine bleeding N92.6 and Thrombocytosis D47.3 [place] [address] [address] Nov, Insulin resistance E88.81 ; Obesity (BMI 30-39.9) E66.9 ; Irregular uterine bleeding N92.6 and Thrombocytosis D47.3 [facility] IN [facility] [address] [address] Oct, Sore throat J02.9 and Acute non-recurrent maxillary sinusitis J01.00 [place] [address] [address] 10 Sep, 2017 Encounter for immunization Z23 [address] [address] 08 Jul, 2017 Exposure to STD Z20.2 ; Unprotected sexual intercourse Z72.51 and Obesity (BMI 30-39.9) E66.9 [place] [address] [address] Jul, [place] [address] [address] Apr, [place] [address] [address] March, Insulin resistance E88.81 ; 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 and Morbid (severe) obesity due to excess calories E66.01 [place] [id number] [place] [address] 30 Mar, 2017 Acute pain of left knee M25.562 and Morbid (severe) obesity due to excess calories E66.01 [facility] [address] [place] [address] Dec, Morbid (severe) obesity due to excess calories E66.01 ; Insulin resistance E88.81 ; 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 and Irregular uterine bleeding N92.6 [facility] [id number] [place] [address] Jul, Asthma exacerbation J45.901 [facility] [id number] [place] [address] Jun, [place] [address] [address] May, Insulin resistance E88.81 ; Body mass index (BMI) of 40.0-44.9 in adult Z68.41 and 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 [place] [id number] [place] [address] May, [facility] [id number] [place] [address] March, [place] [id number] [place] [address] March, Routine health maintenance Z00.00 ; Body mass index (BMI) of 40.0- 44.9 in adult Z68.41 ; Morbid (severe) obesity due to excess calories E66.01 ; Family history of diabetes mellitus Z83.3 ; Family history of cancer Z80.9 ; Family history of heart disease Z82.49 ; Encounter for oral contraception initial prescription Z30.011 and Irregular uterine bleeding N92.6 [place] [id number] [place] [address] March, Sinusitis 473.9 and Allergic rhinitis 477.9 [place] [address] [address] Feb, [place] [address] [facility] [id number] [place] [address] Feb, [facility] [address] [id number] [place] [address] 18 Jul, 2014 [facility] [place] [facility] [address] [id number] [place] [address] Jul, [facility] [place] [facility] [address] [id number] [place] [address] Jun, [facility] [place] [facility] [address] [id number] [place] [address] Jun, [facility] [place] [facility] [address] [id number] [place] [address] Oct, [facility] [place] [facility] [address] [id number] [place] [address] Oct, [facility] [place] [facility] [address] [id number] [place] [address] Aug, [facility] [place] [facility] [address] [id number] [place] [address] Aug, [facility] [place] [facility] [address] [id number] [place] [address] Aug, [facility] [place] [facility] [address] [id number] [place] [address] 18 Aug, 2013 [facility] [place] [facility] [address] [id number] [place] [address] Aug, [facility] [place] [facility] [address] [id number] [place] [address] Aug, [facility] [place] [facility] [address] [id number] [place] [address] Jul, [facility] [place] [facility] [address] [id number] [place] [address] Nov, [facility] [place] [facility] [address] [id number] [place] [address] Nov, [facility] [address], [place] [address] Nov, [facility] [address], [place] [address] Aug, [facility] [address], [place] [address] Jun, [facility] [id number] [place] [address] Jun, [facility] [id number] [place] [address] Apr, [facility] [id number] [place] [address] Feb, [facility] [id number] [place] [address] Feb, [facility] [id number] [place] [address] Nov, [facility] [address] [place] [address] Nov, IMMUNIZATIONS No Known Immunizations SOCIAL HISTORY Never Assessed REASON FOR VISIT irregular periods, last one was 70 days ago. Has fertility questions. Rand Guillermo N, Left hand has sharp pains. PLAN OF CARE Activity Details Follow Up 3 Months, prn Reason:CHM/ VITAL SIGNS Height 67 in 2018-06-18 Weight 267.7 lbs 2018-06-18 Temperature 97.8 degrees Fahrenheit 2018-06-18 Heart Rate 82 bpm 2018-06-18 Respiratory Rate 18 2018-06-18 BMI 41.92 kg/m2 2018-06-18 Blood pressure systolic 102 mmHg 2018-06-18 Blood pressure diastolic 64 mmHg 2018-06-18 MEDICATIONS Medication Instructions Dosage Frequency Start Date End Date Duration Status ProAir RespiClick 108 (90 Base) MCG/ACT Inhalation every 4 hrs 1 puff as needed 4h 24 Jul, 2016 Active RESULTS Name Result Date Reference Range Ultrasound : Pelvic, COMPLETE (REFLEX [id number]) 2018-06-25 PROCEDURES No Known procedures INSTRUCTIONS MEDICATIONS ADMINISTERED No Known Medications MEDICAL (GENERAL) HISTORY Type Description Date Medical History ASTHMA Medical History PCOS Medical History Carpal tunnel- left wrist Medical History Hyperhidrosis
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
--- OUTSIDE RECORDS SUMMARY | 2019-04-21 05:33 | XMS REPORT ---
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 Active 785613344 Problem Irregular uterine bleeding N92.6 Active 50466718 ALLERGIES No Information ENCOUNTERS Encounter Location Date Diagnosis [facility] [address] [address] May, [facility] [address] [address] March, Left facial numbness R20.0 ; Neck pain M54.2 and BMI 40.0-44.9, adult Z68.41 [facility] [id number] [place] [address] Dec, [facility] [address] [address] Nov, Insulin resistance E88.81 ; Obesity (BMI 30-39.9) E66.9 ; Irregular uterine bleeding N92.6 and Thrombocytosis D47.3 [facility] [address] [address] Nov, Insulin resistance E88.81 ; Obesity (BMI 30-39.9) E66.9 ; Irregular uterine bleeding N92.6 and Thrombocytosis D47.3 [facility] [address] [address] Oct, Sore throat J02.9 and Acute non-recurrent maxillary sinusitis J01.00 [place] [id number] [place] [address] 10 Sep, 2017 Encounter for immunization Z23 [facility] [id number] [place] [address] 08 Jul, 2017 Exposure to STD Z20.2 ; Unprotected sexual intercourse Z72.51 and Obesity (BMI 30-39.9) E66.9 [place] [id number] [place] [address] Jul, [place] [id number] [place] [address] Apr, [place] [id number] [place] [address] March, Insulin resistance E88.81 ; 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 and Morbid (severe) obesity due to excess calories E66.01 [place] [id number] [place] [address] Jan, Acute pain of left knee M25.562 and Morbid (severe) obesity due to excess calories E66.01 [place] [id number] [place] [address] Dec, Morbid (severe) obesity due to excess calories E66.01 ; Insulin resistance E88.81 ; 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 and Irregular uterine bleeding N92.6 [facility] [id number] [place] [address] Jul, Asthma exacerbation J45.901 [facility] [id number] [place] [address] Jun, [facility] [id number] [place] [address] May, Insulin resistance E88.81 ; Body mass index (BMI) of 40.0-44.9 in adult Z68.41 and 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 [facility] [id number] [place] [address] May, [facility] [id number] [place] [address] March, [facility] [address] [address] March, Routine health maintenance Z00.00 ; Body mass index (BMI) of 40.0- 44.9 in adult Z68.41 ; Morbid (severe) obesity due to excess calories E66.01 ; Family history of diabetes mellitus Z83.3 ; Family history of cancer Z80.9 ; Family history of heart disease Z82.49 ; Encounter for oral contraception initial prescription Z30.011 and Irregular uterine bleeding N92.6 [place] [id number] [place] [address] 14 Mar, 2015 Sinusitis 473.9 and Allergic rhinitis 477.9 [facility] [id number] [place] [address] Feb, [facility] [id number] [place] [address] 13 Feb, 2015 [facility] [id number] [place] [address] Jul, [facility] [id number] [place] [address] Jul, [facility] [id number] [place] [address] Jun, [facility] [id number] [place] [address] Jun, [facility] [id number] [place] [address] Oct, [facility] [id number] [place] [address] Oct, [facility] [place] [facility] [address] [id number] [place] [address] Aug, [facility] [place] [facility] [address] [id number] [place] [address] Aug, [facility] [place] [facility] [address] [id number] [place] [address] Aug, [facility] [place] [facility] [address] [id number] [place] [address] Aug, [facility] [place] [facility] [address] [id number] [place] [address] Aug, [facility] [place] [facility] [address] [id number] [place] [address] Aug, [facility] [place] [facility] [address] [id number] [place] [address] Jul, [facility] [place] [facility] [address] [id number] [place] [address] Nov, [facility] [place] [facility] [address] [id number] [place] [address] Nov, [facility] [place] [facility] [address] [id number] [place] [address] Nov, [facility] [place] [facility] [address] [id number], [place] [address] Aug, [facility] [place] [facility] [address] [id number], [place] [address] Jun, [facility] [place] [facility] [address] [id number] [place] [address] Jun, [facility] [place] [facility] [address] [id number], [place] [address] Apr, [facility] [place] [facility] [address] [id number] [place] [address] Feb, [facility] [place] [facility] [address] [facility] [id number] [place] [address] Feb, [facility] [address] [facility] [id number] [place] [address] Nov, [facility] [address] [facility] [id number] [place] [address] Nov, IMMUNIZATIONS No Known Immunizations SOCIAL HISTORY Never Assessed REASON FOR VISIT Lab (walk-in) PLAN OF CARE VITAL SIGNS MEDICATIONS Unknown Medications RESULTS No Results PROCEDURES Procedure Date Ordered Result Body Site COMPREHEN METABOLIC PANEL Dec 17, 2017 Hemoglobin Test Send Out 0 dollar Dec 17, 2017 VENIPUNCT, ROUTINE* Dec 17, 2017 COMPLETE CBC W/AUTO DIFF WBC Dec 17, 2017 ASSAY OF INSULIN Dec 17, 2017 ASSAY THYROID STIM HORMONE Dec 17, 2017 LIPID PANEL Dec 17, 2017 INSTRUCTIONS MEDICATIONS ADMINISTERED No Known Medications MEDICAL (GENERAL) HISTORY Type Description Date Medical History ASTHMA Medical History PCOS
--- NOTE | 2019-04-21 05:34 | NUR ---
pt here with " boyfriend". pt alert gc 15. pt started to c/o and points to mid left abd pain 1999 last noc associated with vomiting x 2 and being hot then cold. pt denies nausea now and denies diarrhea. pain rating 9. pt relates last period 5 months ago but that is normal for her. pt denies ua and vaginal c/os. pt also c/o dyspnea and no acute sighns of dyspnea noted. lungs cta bilaterally. abd soft nondistended tender to palpation bilateral lower quads only. done scott pt at 0541.
--- OUTSIDE RECORDS SUMMARY | 2019-04-21 05:34 | XMS REPORT | Continuity of Care Document ---
Author Organization Unknown Address Unknown Allergies There is no data. Medications There is no data. Problems Date Dx Coded Attending Type Code Diagnosis Diagnosed By 12/10/2011 845.00 UNSPECIFIED SITE OF ANKLE SPRAIN 12/10/2011 845.00 UNSPECIFIED SITE OF ANKLE SPRAIN 12/10/2011 ABIEL CARBALLO APRN 845.00 UNSPECIFIED SITE OF ANKLE SPRAIN 12/10/2011 PILY LEE MD 845.00 UNSPECIFIED SITE OF ANKLE SPRAIN 12/10/2011 NONA SANCHES APRN 845.00 UNSPECIFIED SITE OF ANKLE SPRAIN 12/10/2011 ASMUEL REY DO 845.00 UNSPECIFIED SITE OF ANKLE SPRAIN 03/01/2012 684 IMPETIGO 03/01/2012 684 IMPETIGO 03/01/2012 ABIEL CARBALLO APRN R 684 IMPETIGO 03/01/2012 PILY LEE MD 684 IMPETIGO 03/01/2012 NONA SANCHES APRN 684 IMPETIGO 03/01/2012 SAMUEL REY DO 684 IMPETIGO 05/06/2012 380.10 OTITIS EXTERNA LEFT 05/06/2012 V20.2 WELL CHILD 05/06/2012 380.10 OTITIS EXTERNA LEFT 05/06/2012 V20.2 WELL CHILD 05/06/2012 ABIEL CARBALLO APRN R 380.10 OTITIS EXTERNA LEFT 05/06/2012 ABIEL CARBALLO APRN V20.2 WELL CHILD 05/06/2012 PILY LEE MD 380.10 OTITIS EXTERNA LEFT 05/06/2012 PILY LEE MD V20.2 WELL CHILD 05/06/2012 NONA SANCHES APRN 380.10 OTITIS EXTERNA LEFT 05/06/2012 NONA SANCHES APRN N V20.2 WELL CHILD 05/06/2012 SAMUEL REY DO 380.10 OTITIS EXTERNA LEFT 05/06/2012 SAMUEL REY DO V20.2 WELL CHILD 07/19/2012 493.90 ASTHMA UNSPECIFIED 07/19/2012 493.90 ASTHMA UNSPECIFIED 07/19/2012 ABIEL CARBALLO APRN 493.90 ASTHMA UNSPECIFIED 07/19/2012 PILY LEE MD 493.90 ASTHMA UNSPECIFIED 07/19/2012 NONA SANCHES APRN N 493.90 ASTHMA UNSPECIFIED 07/19/2012 SAMUEL REY DO 493.90 ASTHMA UNSPECIFIED 07/20/2012 924.11 CONTUSION OF KNEE 07/20/2012 924.11 CONTUSION OF KNEE 07/20/2012 ABIEL CARBALLO APRN 924.11 CONTUSION OF KNEE 07/20/2012 PILY LEE MD 924.11 CONTUSION OF KNEE 07/20/2012 NONA SANCHES APRN N 924.11 CONTUSION OF KNEE 07/20/2012 SAMUEL REY DO 924.11 CONTUSION OF KNEE 08/26/2012 V03.89 MENINGOCOCCAL DX 08/26/2012 V04.81 FLU DX (3 YRS AND ABOVE, IM) 08/26/2012 V04.89 GARDASIL (HPV) DX 08/26/2012 V05.3 HEP A (PED/ADOL 2-DOSE) DX 08/26/2012 V03.89 MENINGOCOCCAL DX 08/26/2012 V04.81 FLU DX (3 YRS AND ABOVE, IM) 08/26/2012 V04.89 GARDASIL (HPV) DX 08/26/2012 V05.3 HEP A (PED/ADOL 2-DOSE) DX 08/26/2012 ABIEL CARBALLO APRN R V03.89 MENINGOCOCCAL DX 08/26/2012 ABIEL CARBALLO APRN R V04.81 FLU DX (3 YRS AND ABOVE, IM) 08/26/2012 ABIEL CARBALLO APRN R V04.89 GARDASIL (HPV) DX 08/26/2012 ABIEL CARBALLO APRN R V05.3 HEP A (PED/ADOL 2-DOSE) DX 08/26/2012 PILY LEE MD V03.89 MENINGOCOCCAL DX 08/26/2012 PIYL LEE MD V04.81 FLU DX (3 YRS AND ABOVE, IM) 08/26/2012 JESUS GUERRERO, PILY V04.89 GARDASIL (HPV) DX 08/26/2012 PILY LEE MD V05.3 HEP A (PED/ADOL 2-DOSE) DX 08/26/2012 NONA SANCHES APRN N V03.89 MENINGOCOCCAL DX 08/26/2012 NONA SANCHES APRN N V04.81 FLU DX (3 YRS AND ABOVE, IM) 08/26/2012 NONA SANCHES APRN N V04.89 GARDASIL (HPV) DX 08/26/2012 NONA SANCHES APRN N V05.3 HEP A (PED/ADOL 2-DOSE) DX 08/26/2012 SAMUEL REY DO K V03.89 MENINGOCOCCAL DX 08/26/2012 SAMUEL REY DO K V04.81 FLU DX (3 YRS AND ABOVE, IM) 08/26/2012 SAMUEL REY DO K V04.89 GARDASIL (HPV) DX 08/26/2012 SAMUEL REY DO V05.3 HEP A (PED/ADOL 2-DOSE) DX 12/09/2012 278.00 OBESITY 12/09/2012 705.21 PRIMARY FOCAL HYPERHIDROSIS 12/09/2012 278.00 OBESITY 12/09/2012 705.21 PRIMARY FOCAL HYPERHIDROSIS 12/09/2012 ABIEL CARABLLO APRN R 278.00 OBESITY 12/09/2012 ABIEL CARBALLO APRN R 705.21 PRIMARY FOCAL HYPERHIDROSIS 12/09/2012 PILY LEE MD 278.00 OBESITY 12/09/2012 PILY LEE MD 705.21 PRIMARY FOCAL HYPERHIDROSIS 12/09/2012 NONA SANCHES APRN N 278.00 OBESITY 12/09/2012 NONA SANCHES APRN N 705.21 PRIMARY FOCAL HYPERHIDROSIS 12/09/2012 SAMUEL REY DO K 278.00 OBESITY 12/09/2012 SAMUEL REY DO 705.21 PRIMARY FOCAL HYPERHIDROSIS 08/18/2013 ABIEL CARBALLO APRN R 477.9 RHINITIS 08/18/2013 PILY LEE MD 477.9 RHINITIS 08/18/2013 NONA SANCHES APRN 477.9 RHINITIS 08/18/2013 SAMUEL REY DO 477.9 RHINITIS 09/08/2013 JESUS GUERRERO, PILY 783.1 ABNORMAL WEIGHT GAIN 09/08/2013 OJEDANONA ALMANZAR APRN N 783.1 ABNORMAL WEIGHT GAIN 09/08/2013 SAMUEL REY DO 783.1 ABNORMAL WEIGHT GAIN 06/27/2014 OJEDANONA ALMANZAR APRN N 465.9 ACUTE UPPER RESPIRATORY INFECTIONS OF UNSPECIFIED SITE 06/27/2014 OJEDANONA ALMANZAR APRN N 478.19 OTHER DISEASES OF NASAL CAVITY AND SINUSES 06/27/2014 SAMUEL REY DO K 465.9 ACUTE UPPER RESPIRATORY INFECTIONS OF UNSPECIFIED SITE 06/27/2014 SAMUEL REY DO 478.19 OTHER DISEASES OF NASAL CAVITY AND SINUSES 08/10/2014 SAMUEL REY DO V74.1 TB SCREENING Procedures Code [place] [address] ROUTINE VENIPUNCTURE 12/13/2012 86496 CBC 12/13/2012 41324 CMP 12/13/2012 95937 LIPID PANEL 12/13/2012 68016 T4 FREE 12/14/2012 72679 TSH 12/14/2012 41797 INSULIN LEVEL 12/14/2012 35382 ROUTINE VENIPUNCTURE 09/09/2013 42199 PURE TONE HEARING TEST AIR 09/09/2013 64507 CBC 09/09/2013 05488 CMP 09/09/2013 33408 LIPID PANEL 09/09/2013 40916 PROLACTIN 09/09/2013 74403 T4 FREE 09/09/2013 49820 FSH 09/09/2013 09665 LH 09/09/2013 89754 INSULIN LEVEL 09/09/2013 13141 TSH 09/09/2013 05677 A1C (RML) 09/09/2013 84859 TESTOSTERONE-WOMEN & CHILDREN 09/12/2013 76317 TB TEST INTRADERMAL 08/10/2014 Results Test Result Range CULTURE, GENITAL - 07/31/17 14:01 Genital Culture, Routine Final report NRG Result 1 NRG A1C - 12/17/17 08:31 HEMOGLOBIN A1c 5.2 % of total Hgb <5.7 INSULIN LEVEL - 12/17/17 08:31 INSULIN 10.1 uIU/mL 2.0-19.6 Encounters ACCT No. Visit Date/Time Discharge Status Pt. Type Provider Facility Loc./Unit Complaint [id number] 03/02/2019 14:45:00 03/02/2019 23:59:59 CLS Outpatient EDIS GALVEZLUZ [place] [facility] [place] [id number] 12/17/2017 08:20:00 Document Registration [id number] 07/31/2017 13:40:00 Document Registration [id number] 08/10/2014 14:01:00 08/10/2014 23:59:59 CLS Outpatient SAMUEL REY DO [id number] 06/27/2014 10:13:00 06/27/2014 23:59:59 CLS Outpatient NONA SANCHES APRN [id number] 09/09/2013 08:06:00 09/09/2013 23:59:59 CLS Outpatient PILY LEE MD [id number] 08/18/2013 16:18:00 08/18/2013 23:59:59 CLS Outpatient ABIEL CARBALLO APRN [id number] 12/13/2012 08:43:00 12/13/2012 23:59:59 CLS Outpatient [id number] 12/09/2012 15:16:00 12/09/2012 23:59:59 CLS Outpatient
--- OUTSIDE RECORDS SUMMARY | 2019-04-21 05:34 | XMS REPORT ---
Author Author ALFREDO CERVANTES [facility] Address [address] [place] [address] Care Team Providers Care Veterinary Medicine Scientist Name Role Phone ALFREDO CERVANTES Unavailable PROBLEMS Type Condition ICD9-CM Code BIL38-EM Code Onset Dates Condition Status SNOMED Code Problem Obesity (BMI 30-39.9) E66.9 Active 831630351 Problem Insulin resistance E88.81 Active 807489320 Problem Thrombocytosis D47.3 Active 0622341 Problem 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 Active 862055525 Problem Irregular uterine bleeding N92.6 Active 44193622 ALLERGIES No Known Allergies ENCOUNTERS Encounter Location Date Diagnosis [place] [id number] [place] [address] Apr, [place] [address] [address] March, Left facial numbness R20.0 ; Neck pain M54.2 and BMI 40.0-44.9, adult Z68.41 [place] [id number] [place] [address] Dec, [facility] [place] [id number] [place] [address] Nov, Insulin resistance E88.81 ; Obesity (BMI 30-39.9) E66.9 ; Irregular uterine bleeding N92.6 and Thrombocytosis D47.3 [place] [address] [address] Nov, Insulin resistance E88.81 ; Obesity (BMI 30-39.9) E66.9 ; Irregular uterine bleeding N92.6 and Thrombocytosis D47.3 [facility] [address] [place] [address] Oct, Sore throat J02.9 and Acute non-recurrent maxillary sinusitis J01.00 [place] [id number] [place] [address] 10 Sep, 2017 Encounter for immunization Z23 [place] [address] [address] 08 Jul, 2017 Exposure to STD Z20.2 ; Unprotected sexual intercourse Z72.51 and Obesity (BMI 30-39.9) E66.9 [place] [id number] [place] [address] Jul, [place] [address] [address] Apr, [place] [id number] [place] [address] March, Insulin resistance E88.81 ; 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 and Morbid (severe) obesity due to excess calories E66.01 [place] [id number] [place] [address] Jan, Acute pain of left knee M25.562 and Morbid (severe) obesity due to excess calories E66.01 [place] [id number] [place] [address] Dec, Morbid (severe) obesity due to excess calories E66.01 ; Insulin resistance E88.81 ; 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 and Irregular uterine bleeding N92.6 [facility] [id number] [place] [address] Jul, Asthma exacerbation J45.901 [facility] [place] [id number] [place] [address] Jun, [facility] [place] [id number] [place] [address] May, Insulin resistance E88.81 ; Body mass index (BMI) of 40.0-44.9 in adult Z68.41 and 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 [facility] [place] [id number] [place] [address] May, [facility] [place] [id number] [place] [address] March, [facility] [place] [address] [address] March, Routine health maintenance Z00.00 ; Body mass index (BMI) of 40.0- 44.9 in adult Z68.41 ; Morbid (severe) obesity due to excess calories E66.01 ; Family history of diabetes mellitus Z83.3 ; Family history of cancer Z80.9 ; Family history of heart disease Z82.49 ; Encounter for oral contraception initial prescription Z30.011 and Irregular uterine bleeding N92.6 [place] [address] [address] March, Sinusitis 473.9 and Allergic rhinitis 477.9 [facility] [place] [id number] [place] [address] Feb, [place] [address] [address] Feb, [facility] [place] [id number] [place] [address] Jul, [facility] [place] [id number] [place] [address] Jul, [facility] [place] [id number] [place] [address] Jun, [facility] [place] [address] [address] Jun, [facility] [place] [id number] [place] [address] Oct, [facility] [place] [address] [address] Oct, [facility] [place] [facility] [address] [id number] [place] [address] Aug, [facility] [place] [facility] [address] [id number] [place] [address] Aug, [facility] [place] [facility] [address] [id number] [place] [address] Aug, [facility] [place] [facility] [address] [id number] [place] [address] Aug, [facility] [place] [facility] [address] [id number] [place] [address] Aug, [facility] [place] [facility] [address] [id number] [place] [address] Aug, [facility] [place] [facility] [address] [id number] [place] [address] Jul, [facility] [place] [facility] [address] [id number] [place] [address] Nov, [facility] [place] [facility] [address] [id number] [place] [address] Nov, [facility] [place] [facility] [address] [id number] [place] [address] Nov, [facility] [place] [facility] [address] [id number] [address] Aug, [facility] [place] [facility] [address] [id number] [place] [address] Jun, [facility] [place] [facility] [address] [id number] [place] [address] Jun, [facility] [place] [facility] [address] [id number] [place] [address] Apr, [facility] [place] [facility] [address] [id number] [place] [address] Feb, [facility] [place] [facility] [address] [facility] [id number] [place] [address] Feb, [facility] [place] [address] [facility] [id number] [place] [address] Nov, [facility] [place] [address] [facility] [id number] [place] [address] Nov, IMMUNIZATIONS No Known Immunizations SOCIAL HISTORY Never Assessed REASON FOR VISIT runny nose, sore throat, body aches, cough. all started last noc. [email or web address] PLAN OF CARE Activity Details Follow Up if not improving with PCP or reg follow up Reason: VITAL SIGNS Height 67 in 2017-11-07 Weight 242.4 lbs 2017-11-07 Temperature 98.1 degrees Fahrenheit 2017-11-07 Heart Rate 82 bpm 2017-11-07 Respiratory Rate 20 2017-11-07 BMI 37.96 kg/m2 2017-11-07 Blood pressure systolic 116 mmHg 2017-11-07 Blood pressure diastolic 70 mmHg 2017-11-07 MEDICATIONS Medication Instructions Dosage Frequency Start Date End Date Duration Status ProAir RespiClick 108 (90 Base) MCG/ACT Inhalation every 4 hrs 1 puff as needed 4h 24 Jul, 2016 Not-Taking Azithromycin 250 MG Orally Once a day 2 tablets on the first day, then 1 tablet daily for 4 days 24h 5 day(s) Active Flonase 50 MCG/ACT Nasally Once a day 1 spray in each nostril 24h Oct, 30 day(s) Active RESULTS Name Result Date Reference Range STREP A (IN HOUSE) 2017-11-07 STREP A negative Control + Lot # [id number] Exp date 10 22 2018 PROCEDURES Procedure Date Ordered Result Body Site STREP A ASSAY W/OPTIC Nov 07, 2017 INSTRUCTIONS MEDICATIONS ADMINISTERED No Known Medications MEDICAL (GENERAL) HISTORY Type Description Date Medical History ASTHMA Medical History PCOS
--- NOTE | 2019-04-21 06:03 | ED Abdominal Pain ---
General Chief Complaint: Abdominal/GI Problems Stated Complaint: LEFT ABD PAIN & MIDDLE OF STOMACH PAIN,2 HRS OF SL Nursing Triage Note: started 1999 last night. associated with vomiting x 2 Sepsis Screen: No Definite Risk Source of Information: Patient Exam Limitations: No Limitations History of Present Illness Date Seen by Provider: April 21, 2019 Time Seen by Provider: 05:52 Initial Comments Patient presents to ER with significant other and chief complaint of since about 8:00 last night she had some left-sided abdominal and flank pain shooting down towards her left lower quadrant. She had a bowel movement was normal formed and 3 episodes of retching without emesis. She has had subjective fevers and chills sweats and no significant history of trauma surgery or IBD/IBS. She has a history of PCO S but she does not take control. Last period was about 4 months ago. Allergies and Home Medications Allergies Coded Allergies: No Known Drug Allergies (Unverified , 04/02/18) Home Medications Cyclobenzaprine HCl 10 Mg Tablet, 10 MG PO Q8H PRN for SPASMS Prescribed by: VINCENT WILKINSON on 04/03/18 0020 Patient Home Medication List Home Medication List Reviewed: Yes Review of Systems Review of Systems Constitutional: No chills, No diaphoresis EENTM: No Blurred Vision, No Double Vision Respiratory: Denies Cough, Denies Shortness of Air Cardiovascular: Denies Chest Pain, Denies Edema Gastrointestinal: See HPI, Abdominal Pain; Denies Constipated, Denies Diarrhea; Nausea, Vomiting Genitourinary: Denies Burning, Denies Discharge Musculoskeletal: No back pain, No joint pain Past Dgprzdl-Pcgxcm-Ryosuo Hx Patient Social History Alcohol Use: Occasionally Uses Recreational Drug Use: No Smoking Status: Never a Smoker Recent Foreign Travel: No Contact w/Someone Who Travel: No Recent Infectious Disease Expo: No Recent Hopitalizations: No Physical Abuse: No Sexual Abuse: No Past Medical History Surgeries: No Respiratory: Yes Asthma Cardiac: No Neurological: No Genitourinary: No Gastrointestinal: No Musculoskeletal: No Endocrine: No HEENT: No Cancer: No Psychosocial: No Integumentary: No Blood Disorders: No Family Medical History No Pertinent Family Hx Physical Exam Vital Signs Vital Signs - First Documented 04/21/19 05:34 Temp 98.5 Pulse 84 Resp 20 B/P (MAP) 129/74 (92) Pulse Ox 99 O2 Delivery Room Air Capillary Refill : Less Than 3 Seconds Height/Weight/BMI Height: 5'7.00" Weight: 283lbs. oz. 128.248319vo; BMI Method:Stated General Appearance: WD/WN, no apparent distress, obese HEENT: PERRL/EOMI, pharynx normal Respiratory: no respiratory distress, no accessory muscle use Cardiovascular: normal peripheral pulses, regular rate, rhythm, no edema Gastrointestinal: normal bowel sounds, soft, tenderness (mild left upper quadrant and epigastric tenderness as well as suprapubic tenderness) Neurologic/Psychiatric: alert, normal mood/affect, oriented x 3 Progress/Results/Core Measures Results/Orders Lab Results Laboratory Tests Test 04/21/19 06:00 04/21/19 06:08 Range/Units Urine Color YELLOW Urine Clarity CLEAR Urine pH 7 5-9 Urine Specific [place] 1.015 L 1.016-1.022 Urine Protein 2+ H NEGATIVE Urine Glucose (UA) NEGATIVE NEGATIVE Urine Ketones 1+ H NEGATIVE Urine Nitrite NEGATIVE NEGATIVE Urine Bilirubin NEGATIVE NEGATIVE Urine Urobilinogen 1 NORMAL MG/DL Urine Leukocyte Esterase 1+ H NEGATIVE Urine RBC (Auto) NEGATIVE NEGATIVE Urine RBC RARE /HPF Urine WBC 2-5 /HPF Urine Squamous Epithelial Cells 10-25 H /HPF Urine Crystals NONE /LPF Urine Bacteria MODERATE H /HPF Urine Casts NONE /LPF Urine Mucus MODERATE H /LPF Urine Culture Indicated YES White Blood Count 18.1 H 4.3-11.0 10^3/uL Red Blood Count 4.52 4.35-5.85 10^6/uL Hemoglobin 13.1 11.5-16.0 G/DL Hematocrit 38 35-52 % Mean Corpuscular Volume 85 80-99 FL Mean Corpuscular Hemoglobin 29 25-34 PG Mean Corpuscular Hemoglobin Concent 34 32-36 G/DL Red Cell Distribution Width 13.5 10.0-14.5 % Platelet Count 518 H 130-400 10^3/uL Mean Platelet Volume 9.1 7.4-10.4 FL Neutrophils (%) (Auto) 84 H 42-75 % Lymphocytes (%) (Auto) 12 12-44 % Monocytes (%) (Auto) 4 0-12 % Eosinophils (%) (Auto) 0 0-10 % Basophils (%) (Auto) 0 0-10 % Neutrophils # (Auto) 15.2 H 1.8-7.8 X 10^3 Lymphocytes # (Auto) 2.2 1.0-4.0 X 10^3 Monocytes # (Auto) 0.7 0.0-1.0 X 10^3 Eosinophils # (Auto) 0.0 0.0-0.3 10^3/uL Basophils # (Auto) 0.0 0.0-0.1 10^3/uL Neutrophils % (Manual) 85 % Lymphocytes % (Manual) 10 % Monocytes % (Manual) 1 % Eosinophils % (Manual) 0 % Basophils % (Manual) 0 % Band Neutrophils 0 % Reactive Lymphocytes 4 % Blood Morphology Comment NORMAL Sodium Level 138 135-145 MMOL/L Potassium Level 4.2 3.6-5.0 MMOL/L Chloride Level 107 98-107 MMOL/L Carbon Dioxide Level 21 21-32 MMOL/L Anion Gap 10 5-14 MMOL/L Blood Urea Nitrogen 7 7-18 MG/DL Creatinine 0.66 0.60-1.30 MG/DL Estimat Glomerular Filtration Rate > 60 BUN/Creatinine Ratio 11 Glucose Level 120 H 70-105 MG/DL Calcium Level 9.4 8.5-10.1 MG/DL Corrected Calcium 9.3 8.5-10.1 MG/DL Total Bilirubin 0.3 0.1-1.0 MG/DL Aspartate Amino Transf (AST/SGOT) 13 5-34 U/L Alanine Aminotransferase (ALT/SGPT) 13 0-55 U/L Alkaline Phosphatase 107 40-136 U/L C-Reactive Protein High Sensitivity 2.30 H 0.00-0.50 MG/DL Total Protein 7.3 6.4-8.2 GM/DL Albumin 4.1 3.2-4.5 GM/DL Lipase 17 8-78 U/L My Orders Orders - SHANIQUA MCCURDY Cbc With Automated Diff (04/21/19 05:54) Comprehensive Metabolic Panel (04/21/19 05:54) Urine Bedside (04/21/19 05:54) Hs C Reactive Protein (04/21/19 05:54) Lipase (04/21/19 05:54) Manual Differential (04/21/19 06:08) Ct Abdomen/Pelvis W (04/21/19 06:17) Ed Iv/Invasive Line Start (04/21/19 06:17) Ns Iv 1000 Ml (Sodium Chloride 0.9%) (04/21/19 06:17) Iohexol Injection (Omnipaque 350 Mg/Ml 1 (04/21/19 07:00) Received Contrast (Hold Metformin- Contr (04/21/19 07:00) Ns (Ivpb) (Sodium Chloride 0.9% Ivpb Bag (04/21/19 07:00) Medications Given in ED Current Medications Medications Dose Ordered Sig/Shania Route Start Time Stop Time Status Last Admin Dose Admin Iohexol 100 ml ONCE ONCE IV 04/21/19 07:00 04/21/19 07:01 DC 04/21/19 06:55 100 ML Sodium Chloride 100 ml ONCE ONCE IV 04/21/19 07:00 04/21/19 07:01 DC 04/21/19 06:55 80 ML Vital Signs/I&O 04/21/19 05:34 Temp 98.5 Pulse 84 Resp 20 B/P (MAP) 129/74 (92) Pulse Ox 99 O2 Delivery Room Air Blood Pressure Mean: 92 Progress Progress Note : Time: 06:02 Progress Note Patient has a non-surgical abdomen with normal, aseptic vital signs. She is declining anything for pain or nausea at this time. We'll obtain a urinalysis and the lab draw. Seems to have pain all over which could be from a bladder infection or gastroenteritis. 18,000 white count has prompted a CT scan of the abdomen. Patient is resting comfortably not requiring anything for pain or nausea. Diagnostic Imaging Diagonstic Imaging: CT (with contrast) Plain Films/CT/US/NM/MRI: abdomen, pelvis Comments NAME: RODRIGO YOON [facility] REC#: [id number] PT STATUS: REG ER : 1995 PHYSICIAN: SHANIQUA MCCURDY MD ADMIT DATE: 04/21/19/ER Draft Date of Exam:04/21/19 CT ABDOMEN/PELVIS W PROCEDURE: CT abdomen and pelvis with contrast. TECHNIQUE: Multiple contiguous axial images were obtained through the abdomen and pelvis after administration of intravenous contrast. Auto Exposure Controls were utilized during the CT exam to meet ALARA standards for radiation dose reduction. INDICATION: Abdominal pain with nausea and vomiting Lung bases are clear. Liver appears normal. There is a stone in the gallbladder. Common duct is not dilated. Gallbladder wall is not thickened. Pancreas is normal. Spleen is not enlarged. There is a 6 mm calculus in the upper pole of the left kidney. Kidneys and adrenals are otherwise unremarkable. Uterus appears normal. Ovaries appear normal. There is no intraperitoneal free air or free fluid. Small bowel is not dilated. There is no evidence for appendicitis. Colon is unremarkable. IMPRESSION: Nonobstructing left nephrolithiasis. Cholecystolithiasis. No acute abnormalities seen. Dictated on workstation # [id number] Dict: 04/21/19 0704 Trans: 04/21/19 0711 [facility] [id number] Interpreted by: VINCENT STEPHENS MD Electronically signed by: Reviewed: Reviewed by Me Departure Impression Primary Impression: Gastroenteritis Additional Impression: Cholelithiasis Qualified Codes: K80.20 - Calculus of gallbladder without cholecystitis without obstruction Disposition: 01 HOME, SELF-CARE Condition: Stable Departure-Patient Inst. Decision time for Depature: 07:18 Referrals: SAMUEL REY DO (PCP) Primary Care Physician FELTON GALVEZ APRN (Family) Primary Care Physician VIDAL ANDREA DO Patient Instructions: Gallstones (DC) Add. Discharge Instructions: Drink plenty of fluids. Stick to a low fat, high-fiber diet and avoid spicy foods. If you continue to have a lot of symptoms or want to explore elective removal of your gallbladder then you can call and asked for an appointment with the general surgeon Dr. Andrea. All discharge instructions reviewed with patient and/or family. Voiced understanding. Scripts Ondansetron (Ondansetron Odt) 4 Mg Tab.rapdis 4 MG PO Q6H PRN for NAUSEA/VOMITING-1ST LINE, #10 TAB 0 Refills Prov: SHANIQUA MCCURDY 04/21/19 Work/School Note: Work Release Form Date Seen in the Emergency Department: April 21, 2019 Return to Work: April 21, 2019 Restrictions: No Restrictions SHANIQUA MCCURDY April 21, 2019 06:03
[2019-04-21 06:05] LABS: BILIRUBIN,URINE NEGATIVE (NEGATIVE); CLARITY,URINE CLEAR; COLOR,URINE YELLOW; GLUCOSE, URINE (UA) NEGATIVE (NEGATIVE); KETONES,URINE 1+ (NEGATIVE); LEUKOCYTE ESTERASE ,URINE 1+ (NEGATIVE); NITRITE,URINE NEGATIVE (NEGATIVE); PH,URINE 7 (5-9); PROTEIN,URINE 2+ (NEGATIVE); UROBILINOGEN,URINE 1 MG/DL (NORMAL)
--- NOTE | 2019-04-21 06:10 | NUR ---
peripherel stick for labs by me and to lab by me. another nurse did ua hcg.
[2019-04-21 06:13] LABS: BACTERIA,URINE MODERATE /HPF; RBC,URINE RARE /HPF
[2019-04-21 06:15] LABS: BASOPHILS % (AUTO) 0 % (0-10); EOSINOPHILS % (AUTO) 0 % (0-10); HEMATOCRIT 38 % (35-52); HEMOGLOBIN 13.1 G/DL (11.5-16.0); LYMPHOCYTES # (AUTO) 2.2 X 10^3 (1.0-4.0); LYMPHOCYTES % (AUTO) 12 % (12-44); MEAN CORPUSCULAR HEMOGLOBIN 29 PG (25-34); MEAN CORPUSCULAR HGB CONC 34 G/DL (32-36); MEAN CORPUSCULAR VOLUME 85 FL (80-99); MEAN PLATELET VOLUME 9.1 FL (7.4-10.4); MONOCYTES # (AUTO) 0.7 X 10^3 (0.0-1.0); MONOCYTES % (AUTO) 4 % (0-12); NEUTROPHILS # (AUTO) 15.2 X 10^3 (1.8-7.8); NEUTROPHILS % (AUTO) 84 % (42-75); PLATELET COUNT 518 10^3/uL (130-400); RED CELL DISTRIBUTION WIDTH 13.5 % (10.0-14.5); WHITE BLOOD COUNT 18.1 10^3/uL (4.3-11.0)
[2019-04-21] MEDS ORDERED: NS IV 1000 ML 1,000 ML IV SCH (06:17)
[2019-04-21 06:31] LABS: BAND NEUTROPHILS 0 %; BASOPHILS % (MANUAL) 0 %; EOSINOPHILS % (MANUAL) 0 %; LYMPHOCYTES % (MANUAL) 10 %; MONOCYTES % (MANUAL) 1 %; NEUTROPHILS % (MANUAL) 85 %; RBC MORPH NORMAL; REACTIVE LYMPHOCYTES 4 %
--- NOTE | 2019-04-21 06:33 | NUR ---
i will start ns bolus later. pt to ct now.
[2019-04-21 06:49] LABS: ALANINE AMINOTRANSFERASE 13 U/L (0-55); ALBUMIN 4.1 GM/DL (3.2-4.5); ALKALINE PHOSPHATASE 107 U/L (40-136); BILIRUBIN,TOTAL 0.3 MG/DL (0.1-1.0); BUN/CREATININE RATIO 11; CALCIUM 9.4 MG/DL (8.5-10.1); CARBON DIOXIDE 21 MMOL/L (21-32); CHLORIDE 107 MMOL/L (98-107); CREATININE SERUM 0.66 MG/DL (0.60-1.30); GFR ESTIMATED > 60; GLUCOSE 120 MG/DL (70-105); LIPASE 17 U/L (8-78); POTASSIUM 4.2 MMOL/L (3.6-5.0); SODIUM 138 MMOL/L (135-145); TOTAL PROTEIN 7.3 GM/DL (6.4-8.2)
--- NOTE | 2019-04-21 06:57 | NUR ---
report to miguel angel rn. she knows pt still needs bolus.
[2019-04-21] MEDS ORDERED: HOLD METFORMIN - RECEIVED CONTRAST 20 ML VIAL IV SCH (07:00)
[2019-04-21] MEDS ORDERED: NS 100 ML (IVPB) BAG IV ONE (07:00)
[2019-04-21] MEDS ORDERED: IOHEXOL 350 MG/ML 100 ML (OMNIPAQUE 350) VIAL IV ONE (07:00)
--- NOTE | 2019-04-21 07:06 | NUR ---
0700 REPORT AND CARE OF PATIENT FROM LOGAN MARIO. Addendum: 04/21/19 at 0805 by [email or web address] PATIENT RETURN FROM CT PER W/C LAUGHING AND TALKING TO BOOSTER PUMP OPERATOR.
--- NOTE | 2019-04-21 07:11 | Diagnostic Imaging Report ---
PROCEDURE: CT abdomen and pelvis with contrast. TECHNIQUE: Multiple contiguous axial images were obtained through the abdomen and pelvis after administration of intravenous contrast. Auto Exposure Controls were utilized during the CT exam to meet ALARA standards for radiation dose reduction. INDICATION: Abdominal pain with nausea and vomiting Lung bases are clear. Liver appears normal. There is a stone in the gallbladder. Common duct is not dilated. Gallbladder wall is not thickened. Pancreas is normal. Spleen is not enlarged. There is a 6 mm calculus in the upper pole of the left kidney. Kidneys and adrenals are otherwise unremarkable. Uterus appears normal. Ovaries appear normal. There is no intraperitoneal free air or free fluid. Small bowel is not dilated. There is no evidence for appendicitis. Colon is unremarkable. IMPRESSION: Nonobstructing left nephrolithiasis. Cholecystolithiasis. No acute abnormalities seen. Dictated by: Dictated on workstation # [id number]
[2019-04-21] MEDS ORDERED: ONDA4TAB11 PO ×2 (07:20)
[2019-04-21] MEDS ORDERED: KETOROLAC 30 MG/ML VIAL IVP ONE (07:30)
[2019-04-21 07:32] VITALS: BP 136/85
[2019-04-21] MEDS ORDERED: ACHD5005 PO ×2 (18:26)
[2019-04-21] MEDS ORDERED: CEPH-507 PO ×2 (18:26)
== END 2019-04-21 07:32 | disposition home or self-care (01) ==
LOC: EDUNIT# 05:25 → ER 05:27
DX: K52.9 Noninfective gastroenteritis and colitis, unspecified (principal); K80.20 Calculus of gallbladder without cholecystitis without obstruction; J45.909 Unspecified asthma, uncomplicated
CPT/HCPCS: 36415; 74177; 80053; 81000; 83690; 84703; 85007; 85027; 86141; 87088; 96374

== ENCOUNTER 2019-04-21 10:50 | Day surgery (SDC) | payer SELFPAY ==
[2019-04-21] VITALS (15 sets, daily range): BP systolic 107–142; BP diastolic 60–88
[~2019-04-21] VITALS: Ht 170.2 cm; Wt 128.4 kg
[~2019-04-21 10:50] MED LIST changes: +ONDA4TAB11 PO
[2019-04-21] MEDS ORDERED: ONDANSETRON 4 MG/2 ML (SDV) Z0FRAN IVP PRN ×2 (12:15→19:00)
[2019-04-21] MEDS ORDERED: morphine INJ 4 MG/ML 1 ML (VIAL/SYRINGE) IVP PRN (12:15)
--- NOTE | 2019-04-21 12:24 | History & Physical-Surgical ---
History of Present Illness History of Present Illness Reason for visit/HPI Acute Appendicitis, pt was seen in the ER and sent home but the radiology overread called CT with early acute appendicitis. HPI per ED: Patient presents to ER with significant other and chief complaint of since about 8:00 last night she had some left-sided abdominal and flank pain shooting down towards her left lower quadrant. She had a bowel movement was normal formed and 3 episodes of retching without emesis. She has had subjective fevers and chills sweats and no significant history of trauma surgery or IBD/IBS. She has a history of PCOS but she does not take control. Last period was about 4 months ago. When I spoke to pt she stated the pain started after eating Mac and cheese and khmer sausage; has never had pain like this before. She has had small pains before but always thought it was her PCOS; never associated with food. Her significant other states that he noticed she was actually "sluggish and looked sick around 11am" when he came home and was still in bed. She never got better and then it got worse at 8; pain 8 out of 10 which started LUQ and went into RLQ. She was then "up all night vomiting" and finally went to the ER just before 5am. Nothing made pain better except Toradol shot she got in ER. Pain did not radiate anywhere. She was sent home and had a baloney sandwich at 8am this morning, before being called back. ER also noted gallstones on CT. Date of Admission 04/21/2019 Time Seen by a Provider: 11:22 I consulted on this patient on 04/21/19 12:16 Attending Physician Vidal Andrea DO Admitting Physician Miroslava Mosqueda DO Consult Allergies and Home Medications Allergies Coded Allergies: No Known Drug Allergies (Unverified , 04/02/18) Home Medications Cyclobenzaprine HCl 10 Mg Tablet, 10 MG PO Q8H PRN for SPASMS Prescribed by: VINCENT WILKINSON on 04/03/18 0020 Ondansetron 4 Mg Tab.rapdis, 4 MG PO Q6H PRN for NAUSEA/VOMITING-1ST LINE Prescribed by: SHANIQUA MCCURDY on 04/21/19 0720 Patient Home Medication List Home Medication List Reviewed: Yes Past Jglotmm-Trorke-Gmfcbg Hx Patient Social History Alcohol Use: Occasionally Uses Recreational Drug Use: No Smoking Status: Never a Smoker Recent Foreign Travel: No Contact w/Someone Who Travel: No Recent Hopitalizations: No Seasonal Allergies Seasonal Allergies: No Surgeries History of Surgeries: No Respiratory History of Respiratory Disorde: Yes Respiratory Disorders: Asthma Cardiovascular History of Cardiac Disorders: No Neurological History of Neurological Disord: No Reproductive System : No Sexually Transmitted Disease: No Female Reproductive Disorders: Polycystic Ovarian Dis Genitourinary History of Genitourinary Disor: No Gastrointestinal History of Gastrointestinal Di: No Musculoskeletal History of Musculoskeletal Dis: No Endocrine History of Endocrine Disorders: No HEENT History of HEENT Disorders: No Cancer History of Cancer: No Psychosocial History of Psychiatric Problem: No Integumentary History of Skin or Integumenta: No Blood Transfusions History of Blood Disorders: No Family Medical History Significant Family History: No Pertinent Family Hx, COPD (mother), Stroke (father) Review of Systems Constitutional: chills, diaphoresis, malaise, weakness EENTM: No blurred vision, No double vision, No mouth pain, No mouth swelling, No epistaxis, No throat swelling Respiratory: No cough, No dyspnea on exertion, No hemoptysis, No short of breath Cardiovascular: No chest pain, No edema, No palpitations Gastrointestinal: abdominal pain; No diarrhea, No hematemesis, No heartburn, No jaundice Genitourinary: No dysuria, No frequency, No hematuria : No Musculoskeletal: No joint pain, No joint swelling Skin: No change in color, No change in hair/nails Psychiatric/Neurological: Denies Anxiety, Denies Depressed, Denies Seizure, Denies Tremors pt denies any abnormal bleeding or bruising, no heat or cold intolerance Physical Exam Vital Signs Capillary Refill : Height, Weight, BMI Height: 5'7.00" Weight: 283lbs. oz. 128.901003jn; BMI Method:Stated General Appearance: No Apparent Distress, WD/WN, Obese Eyes: Bilateral Eye PERRL, Bilateral Eye EOMI HEENT: Pharynx Normal, Moist Mucous Membranes; No Pale Conjunctivae (L), No Pale Conjunctivae (R) Neck: Full Range of Motion, Normal Inspection, Non Tender, Supple Respiratory: Chest Non Tender, Lungs Clear, Normal Breath Sounds, No Accessory Muscle Use, No Respiratory Distress Cardiovascular: Regular Rate, Rhythm, No Edema, No Murmur Gastrointestinal: Normal Bowel Sounds, No Organomegaly, Soft, Hernia (small umbilical hernia), Tenderness (RLQ mostly and when pressed in other quadrants it hurts in RLQ) Back: Normal Inspection, No CVA Tenderness, No Vertebral Tenderness Extremity: Normal Capillary Refill, Normal Inspection, Non Tender, No Calf Tenderness Neurologic/Psychiatric: Alert, Oriented x3, No Motor/Sensory Deficits, Normal Mood/Affect, cmm inspector II-XII Norm as Tested Skin: Normal Color, Warm/Dry Lymphatic: No Adenopathy (neck, axilla or groin) Assessment/Plan Assessment/Plan Admission Diagonsis Acute Appendicitis Admission Status: Other (Same Day Surgery) Assessment/Plan Acute appendicitis Cholelithiasis without cholecystitis PCOS Pt was in the ED with abdominal pain, nausea and vomiting with an elevated WBC of 18k. CT scan was read initially as no acute process but the over read done in the am came back as early acute appendicitis. I looked at the CT myself and agree that appendix looks enlarged and appears to have some appendicoliths; not sure I see inflammation. I also noted some gallstones, but do not think she has signs of cholecystitis at this time. She may never have gallbladder problems or may have them in a week; however, I don't think there is a good reason to take it out at this time. Plan to do laparoscopic appendectomy possible open, start IV fluids, pain control and antiemetics. She will get ABX just prior to OR. We discussed risks and complications not limited to pain, bleeding, infection, scar, damage to bowel and need for further procedure. All questions answered to her satisfaction. VIDAL ANDREA DO April 21, 2019 12:24
[2019-04-21] MEDS: LACTATED RINGERS 1,000 ML IV SCH ×3 (12:40→18:15)
--- OUTSIDE RECORDS SUMMARY | 2019-04-21 14:30 | XMS REPORT | Continuity of Care Document ---
[...] 845.00 UNSPECIFIED SITE OF ANKLE SPRAIN 12/10/2011 SAMUEL REY DO 845.00 UNSPECIFIED SITE OF ANKLE [...] PILY LEE MD V03.89 MENINGOCOCCAL DX 08/26/2012 PILY LEE MD V04.81 FLU DX (3 YRS [...] 12/09/2012 705.21 PRIMARY FOCAL HYPERHIDROSIS 12/09/2012 ABIEL CARBALLO APRN R 278.00 OBESITY 12/09/2012 ABIEL CARBALLO [...] RESPIRATORY INFECTIONS OF UNSPECIFIED SITE 06/27/2014 OJEDANONA AMLANZAR APRN N 478.19 OTHER DISEASES OF NASAL CAVITY AND SINUSES 06/27/2014 SAMUEL REY DO K 465.9 ACUTE UPPER RESPIRATORY INFECTIONS OF UNSPECIFIED SITE 06/27/2014 SAMUEL REY DO 478.19 OTHER DISEASES OF NASAL CAVITY AND SINUSES 08/10/2014 SAMUEL REY DO V74.1 TB SCREENING Procedures Code [place] [address] ROUTINE VENIPUNCTURE 12/13/2012 67426 CBC 12/13/2012 61485 CMP 12/13/2012 40398 LIPID PANEL 12/13/2012 45320 T4 FREE 12/14/2012 54399 TSH 12/14/2012 28381 INSULIN LEVEL 12/14/2012 87969 ROUTINE VENIPUNCTURE 09/09/2013 07105 PURE TONE HEARING TEST AIR 09/09/2013 72467 CBC 09/09/2013 11508 CMP 09/09/2013 40849 LIPID PANEL 09/09/2013 51356 PROLACTIN 09/09/2013 50278 T4 FREE 09/09/2013 49179 FSH 09/09/2013 51746 LH 09/09/2013 51576 INSULIN LEVEL 09/09/2013 71906 TSH 09/09/2013 12114 A1C (RML) 09/09/2013 99109 TESTOSTERONE-WOMEN & CHILDREN 09/12/2013 72159 TB TEST INTRADERMAL 08/10/2014 Results Test Result Range CULTURE, GENITAL - 07/31/17 14:01 Genital Culture, Routine Final report NRG Result 1 NRG A1C - 12/17/17 08:31 HEMOGLOBIN A1c 5.2 % of total Hgb <5.7 INSULIN LEVEL - 12/17/17 08:31 INSULIN 10.1 uIU/mL 2.0-19.6 Encounters ACCT No. Visit Date/Time Discharge Status Pt. Type Provider Facility Loc./Unit Complaint [id number] 03/02/2019 14:45:00 03/02/2019 23:59:59 CLS Outpatient EDIS GALVEZLUZ [place] [facility] [id number] 12/17/2017 08:20:00 Document Registration [id number] 07/31/2017 13:40:00 Document Registration [id number] 08/10/2014 14:01:00 08/10/2014 23:59:59 CLS Outpatient SAMUEL REY DO [id number] 06/27/2014 10:13:00 06/27/2014 23:59:59 CLS Outpatient NONA SANCHES APRN [id number] 09/09/2013 08:06:00 09/09/2013 23:59:59 CLS Outpatient PILY LEE MD [id number] 08/18/2013 16:18:00 08/18/2013 23:59:59 CLS Outpatient ABIEL CARBALLO APRN [id number] 12/13/2012 08:43:00 12/13/2012 23:59:59 CLS Outpatient [id number] 12/09/2012 15:16:00 12/09/2012 23:59:59 CLS Outpatient
[2019-04-21] MEDS ORDERED: LIDOCAINE 1% INJ 20 ML 20 ML VIAL ONE (15:28)
[2019-04-21] MEDS ORDERED: BUP/EPI 0.5% 1:200,000 (SENSORCAINE) 30 ML VIAL ONE (15:28)
[2019-04-21] MEDS ORDERED: ceFAZolin 2 GM/50 ML NS 50 ML IV ONE (15:30)
[2019-04-21] MEDS ORDERED: MIDAZOLAM 2 MG/2 ML (VERSED) VIAL ONE (17:15)
[2019-04-21] MEDS ORDERED: fentaNYL INJECTION 100 MCG/2 ML AMP ONE (17:15)
[2019-04-21] MEDS ORDERED: SEVOFLURANE (ULTANE) 15 ML INHAL SOLN ONE (17:15)
[2019-04-21] MEDS ORDERED: proPOfol 200 MG/20 ML (DIPRIVAN) VIAL IV ONE (17:15)
[2019-04-21] MEDS ORDERED: ROCURONIUM 10 MG/ML 5 ML SYRINGE IV ONE (17:15)
[2019-04-21] MEDS ORDERED: ONDANSETRON 4 MG/2 ML (SDV) Z0FRAN ONE (17:15)
[2019-04-21] MEDS ORDERED: DEXAMETHASONE 10 MG/ML (DECADRON) 1 ML VIAL ONE (17:15)
[2019-04-21] MEDS ORDERED: HYDROmorphone 2 MG/ML VIAL (DILAUDID) ONE (17:41)
[2019-04-21] MEDS ORDERED: DESFLURANE (SUPRANE) 15 ML INHAL SOLN ONE (17:43)
[2019-04-21] MEDS ORDERED: GLYCOPYRROLATE 0.2 MG/ML (ROBINUL) 2 ML VIAL ONE (17:53)
[2019-04-21] MEDS ORDERED: NEOSTIGMINE 1 MG/ML 5 ML SYRINGE ONE (17:53)
[2019-04-21] MEDS ORDERED: KETOROLAC 30 MG/ML VIAL ONE (18:05)
[2019-04-21] MEDS ORDERED: SUGAMMADEX 500 MG/5 ML VIAL (BRIDION) IV ONE (18:07)
--- NOTE | 2019-04-21 18:15 | Progress Note-Post Operative ---
Post-Operative Progess Note Surgeon (s)/Woven Wood Shade Assembler (s) Surgeon VIDAL ANDREA DO Woven Wood Shade Assembler: none Pre-Operative Diagnosis acute appendicitis Post-Operative Diagnosis Same plus TOA Cholelithiasis Procedure & Operative Findings Date of Procedure 04/21/19 Procedure Performed/Findings Lap Appy Anesthesia Type GET Estimated Blood Loss Estimated blood loss (mL): scant Specimens/Packing Specimens Removed VIDAL Rahman DO April 21, 2019 18:15
[2019-04-21] MEDS ORDERED: CEPH-507 PO ×2 (18:26)
[2019-04-21] MEDS ORDERED: ACHD5005 PO ×2 (18:26)
--- NOTE | 2019-04-21 18:28 | Discharge Inst-Surgical ---
Discharge Inst-Surgical Depart Medication/Instructions New, Converted or Re-Newed RX: RX Given to Pt/Family Patient Instructions Follow up Appt: Make appointment for 1 week. [phone] Instructions: No lifting greater than 20 pounds. No strenuous activity. May shower in 24 hours, no tub bath or soaking. Use incentive spirometer at home as directed. No Smoking Skin/Wound Care: May remove bandages in am. You need to leave the Dermabond on incision it will fall off on it's own. Symptoms to Report: Appetite Changes, Extremity Discoloration, Numbness/Tingling, Swelling Increased, Bleeding Excessive, Eyesight Changes, Pain Increased, Urine Color Change, Constipation(Persistent), Fever over 101 degree F, Pain/Pressure in chest, Urinating Difficulty, Cough Up/Vomit Blood, Heart Beat Irreg/Pounding, Pain/Pressure in jaw, Cramps in feet or legs, Lightheadedness, Pain/Pressure in shoulder, Diarrhea(Persistent), Memory Changes Suddenly, Questions/Concerns, Weight gain consecutive days, Dizziness/Fainting, Nausea/Vomiting, Shortness of Breath, Weight gain over 2 pounds If questions or concerns contact your physician Or seek help at emergency department. Activity Activity as Tolerated: Yes Activity Instructions: Avoid Stress to Incision Diet Discharge Diet: No Restrictions Diet After 24 Hours: Clear Liquid if Nauseous If Any Problems/Questions/Issu: Contact Your Physician, Go to Emergency Room Skin/Wound Care Infection Signs and Symptoms: Increased Redness, Foul Odor of Wound, Increased Drainage, Skin Itchy or Has a Rash, Increased Swelling, Temperature Above 101 F Wound Care Comment: Heating pad to shoulder or neck tonight for pain Bathing Instructions: Shower Stitches/Irish/Dermabond Dis: Dermabond Ice Pack: Ice On and Off Site (as needed for pain at incision sites) VIDAL ANDREA DO April 21, 2019 18:28
[2019-04-21] MEDS ORDERED: AZITHROMYCIN 250 MG TAB (ZITHROMAX) PO ONE (18:30)
[2019-04-21] MEDS ORDERED: cefTRIAXone FOR IV USE 1,000 MG in WATER (STERILE) FOR INJECTION 10 ML IV ONE (18:30)
--- NOTE | 2019-04-21 18:55 | Anesthesia-General Post-Op ---
General Patient Condition Mental Status/LOC: Same as Preop Cardiovascular: Satisfactory Nausea/Vomiting: Absent Respiratory: Satisfactory Pain: Controlled Complications: Absent Post Op Complications Complications None Follow Up Care/Instructions Patient Instructions None needed. Anesthesia/Patient Condition Patient Condition Patient is doing well, no complaints, stable vital signs, no apparent adverse anesthesia problems. No complications reported per nursing. D/C home per [facility] Criteria: Yes ELIAS SMITH CRNA April 21, 2019 18:54
[2019-04-21] MEDS ORDERED: HYDROmorphone 2 MG/ML VIAL (DILAUDID) IV ONE (19:00)
--- NOTE | 2019-04-21 19:25 | NUR ---
PATIENT ARRIVED ON FLOOR AT 1924. REPORT RECEIVED FROM SHELBI LAYTON. PATIENT ORIENTED TO ROOM, BELONGINGS AT BEDSIDE, FAMILY PRESENT, NO PAIN REPORTED AT THIS TIME.
--- NOTE | 2019-04-21 20:30 | NUR ---
TEXTILE SCREEN MAKER SPOKE WITH EMRE VERMA, AND OKAYED PATIENT TO BE DC.
[2019-04-21] MEDS ORDERED: WATER (STERILE) FOR INJECTION 10 ML ONE (21:05)
[2019-04-21] MEDS ORDERED: cefTRIAXone 1,000 MG IV (ROCEPHIN) VIAL ONE (21:05)
--- NOTE | 2019-04-21 22:20 | NUR ---
RODRIGO YOON demonstrates understanding of discharge instructions and accurately returns instructions upon questioning. Copy of Post-Discharge Instructions and Medication Discharge Instructions given to PATIENT. RODRIGO YOON is able to manage continuing needs after discharge. Patients belongings returned to PATIENT. Skin dry and intact; no breakdown noted. Patient discharged from on 04/22/19 at 2220. RODRIGO YOON left floor via WHEELCHAIR, accompanied by STAFF.
--- NOTE | 2019-04-22 01:09 | OPERATIVE REPORT ---
DATE OF SERVICE: PREOPERATIVE DIAGNOSES: Acute appendicitis and cholelithiasis. POSTOPERATIVE DIAGNOSES: Acute appendicitis, cholelithiasis and PID. PROCEDURE: Laparoscopic appendectomy. SURGEON: Bradley Ignacio DO ATHLETIC INSTRUCTOR: None. ANESTHESIA: General endotracheal tube. SPECIMEN: Appendix. BLOOD LOSS: Scant. FLUIDS: Per anesthesia. POSTOPERATIVE CONDITION: Stable. INDICATION FOR PROCEDURE: The patient is a 23-year-old female who came in with some abdominal pain, vomiting, elevated white count and a CAT scan read as acute appendicitis, also noted to have cholelithiasis. FINDINGS: The patient had acute appendicitis, but also looked like she had some PID as a little bit of purulent fluid just above the uterus and the left fallopian tube looked inflamed. PROCEDURE NOTE: After informed consent was obtained, the patient was brought to the operating room, placed on the table in supine position. She was sterilely prepped and draped in normal fashion. Local lidocaine was used to treat the skin above the umbilicus. Made an incision with #11 blade, carried down through skin and subcutaneous tissue and deepened down the subcutaneous tissue with Bovie electrocautery down to the fascia. Fascia incised with Bovie electrocautery. Bluntly entered the abdomen, swept a finger around, placed 0 Vicryl fckkvf-sq-caqzu suture, then placed 11 mm trocar port under direct visualization. Created pneumoperitoneum and placed 2 more ports in normal fashion using local lidocaine, 11 blade for stab incision and the VersaStep system, all done under direct visualization, one suprapubically and one in left lower quadrant. The patient then placed a Trendelenburg and rotated to the left, moved the small intestine out of the way and saw the appendix; it was inflamed, little bit of erythema. It was thickened and distended and there was a little bit of fibrinous material on the tip, able to grasp the appendix and then start coming across the mesoappendix with LigaSure, clamping, coagulating and transecting in this fashion carefully move it away from the small terminal ileum as well as the cecum and then freeing up the appendix was only attached to the cecum. Once this was done, switched to 5 mm camera, brought Endo-MARIELLE and placed across the appendix, clamped and fired, thereby transecting the appendix, placed a bag in the abdomen, placed the appendix in the bag and then removed this through supraumbilical incision. Placed the port back in the abdomen, irrigated with normal saline, suctioned this out. No bleeding, no other obvious pathology around the cecum looked in the pelvis and actually saw some what looked like purulent fluid and then looking at the tubes, the left fallopian tube looked erythematous and looked like it had thick and maybe even some pus in the tube. It looked like a PID even the right tube looked a little bit inflamed, also noted the gallbladder. There were adhesions of the gallbladder. She indicates previous gallbladder attacks, could see what looked like a stone at the tip, but did not look inflamed at all. No edema around it. At this point, the patient was then placed supine, removed all ports under direct visualization, allowed pneumoperitoneum to escape. Closed the supraumbilical incision, closing the fascia with 0 Vicryl suture previously placed. Copiously irrigated all incisions with normal saline, closing 2 small 5 mm incisions with a single interrupted 4-0 undyed Monocryl subcuticular stitch. Closed the supraumbilical incision with four interrupted 4-0 undyed Monocryl subcuticular stitches. Area was cleaned and dried and Dermabond placed as well as bandage. The patient then transferred to recovery room in stable condition. Sponge, instrument and needle count correct at the end of the case. Job ID: [id number] DocumentID: [id number] Dictated Date: 04/21/2019 18:34:24 Survey Engineer Date: 04/22/2019 01:08:53 Dictated By: BRADLEY IGNACIO DO
--- NOTE | 2019-04-22 14:35 | Anesthesia-General Post-Op ---
General Patient Condition Mental Status/LOC: Same as Preop Cardiovascular: Satisfactory Nausea/Vomiting: Absent Respiratory: Satisfactory Pain: Controlled Complications: Absent Post Op Complications Complications None Follow Up Care/Instructions Patient Instructions None needed. Anesthesia/Patient Condition Patient Condition Patient is doing well, no complaints, stable vital signs, no apparent adverse anesthesia problems. No complications reported per nursing. D/C home per [facility] Criteria: Yes LILIA LEIJA CRNA April 22, 2019 14:35
== END 2019-04-21 22:20 | disposition home or self-care (01) ==
LOC: SDC 10:50
PROVIDERS: ATTEND Surgery
DX: K35.80 Unspecified acute appendicitis (principal); K80.20 Calculus of gallbladder without cholecystitis without obstruction; N73.9 Female pelvic inflammatory disease, unspecified; J45.909 Unspecified asthma, uncomplicated; E28.2 Polycystic ovarian syndrome; E66.01 Morbid (severe) obesity due to excess calories; Z68.42 Body mass index [BMI] 45.0-49.9, adult
CPT/HCPCS: 87081

== ENCOUNTER 2022-02-19 13:36 | Outpatient (RCR) | payer BC, OTHER ==
[~2022-02-19 13:36] MED LIST changes: +ACHD5005 PO; +CEPH-507 PO; +CYCL10TA25 PO; -CYCL10TA9 PO
[2022-02-19 15:01] LABS: ABSOLUTE RETIC # 99 10e9/uL (24-90); BASOPHILS # (AUTO) 0.1 10^3/uL (0.0-0.1); BASOPHILS % (AUTO) 1 % (0-10); EOSINOPHILS # (AUTO) 0.4 10^3/uL (0.0-0.3); EOSINOPHILS % (AUTO) 3 % (0-10); HEMATOCRIT 40 % (35-52); HEMOGLOBIN 12.8 g/dL (11.5-16.0); LYMPHOCYTES # (AUTO) 4.1 10^3/uL (1.0-4.0); LYMPHOCYTES % (AUTO) 29 % (12-44); MEAN CORPUSCULAR HEMOGLOBIN 28 pg (25-34); MEAN CORPUSCULAR HGB CONC 32 g/dL (32-36); MEAN CORPUSCULAR VOLUME 87 fL (80-99); MEAN PLATELET VOLUME 8.7 fL (9.0-12.2); MONOCYTES % (AUTO) 7 % (0-12); NEUTROPHILS # (AUTO) 8.6 10^3/uL (1.8-7.8); NEUTROPHILS % (AUTO) 60 % (42-75); PLATELET COUNT 614 10^3/uL (130-400); RETICULOCYTE % 2.19 % (0.50-2.40); WHITE BLOOD COUNT 14.2 10^3/uL (4.3-11.0)
[2022-02-19 15:20] LABS: ERYTHROCYTE SEDIMENTATION RATE 33 MM/HR (0-20)
[2022-02-19 15:27] LABS: ALBUMIN 3.9 GM/DL (3.2-4.5); BILIRUBIN,TOTAL 0.2 MG/DL (0.1-1.0); CREATININE SERUM 0.69 MG/DL (0.60-1.30); POTASSIUM 3.8 MMOL/L (3.6-5.0); TOTAL PROTEIN 7.4 GM/DL (6.4-8.2)
== END 2022-02-20 ==
LOC: ONC 13:36
PROVIDERS: ATTEND Internal Medicine Hematology & Oncology
DX: D75.839 Thrombocytosis, unspecified (principal); J45.909 Unspecified asthma, uncomplicated; E66.01 Morbid (severe) obesity due to excess calories
CPT/HCPCS: 80053; 82728; 83540; 83550; 85025; 85045; 85652; G0463; 99214

== ENCOUNTER 2022-03-06 05:41 | Outpatient (CLI) | payer BC ==
[~2022-03-06] VITALS: Ht 170.2 cm; Wt 153.6 kg
[2022-03-06] MEDS ORDERED: ALUM35SO TP (12:50)
[2022-03-06] MEDS ORDERED: RT-ALBUINH INH (12:50)
[2022-03-06] MEDS ORDERED: ESCI5TAB PO (12:50)
[2022-03-06] MEDS ORDERED: CHOL100048 PO (12:50)
[2022-03-06] MEDS ORDERED: ARIP15TA4 PO (12:50)
== END 2022-03-06 12:56 | disposition home or self-care (01) ==
LOC: PREOP 05:41
PROVIDERS: ATTEND Surgery
DX: Z01.818 Encounter for other preprocedural examination (principal)

== ENCOUNTER 2022-03-12 06:28 | Day surgery (SDC) | payer BC ==
[2022-03-12] VITALS (11 sets, daily range): BP systolic 124–150; BP diastolic 63–88
[~2022-03-12] VITALS: Ht 162 cm; Wt 153.6 kg
[~2022-03-12 06:28] MED LIST changes: +ALUM35SO TP; +ARIP15TA4 PO; +CHOL100048 PO; +ESCI5TAB PO; +RT-ALBUINH INH
[2022-03-12] MEDS ORDERED: ceFAZolin INJECTION 1,000 MG VIAL IV ONE (07:00)
[2022-03-12] MEDS: LACTATED RINGERS 1,000 ML IV PRN ×2 (07:16→09:11)
[2022-03-12] MEDS ORDERED: LIDOCAINE/EPI 2% 1:100,00 (XYLOCAINE) 20 ML VIAL ONE (07:19)
[2022-03-12] MEDS ORDERED: ceFAZolin 2 GM IV Premixed 50 ML ONE (07:53)
--- NOTE | 2022-03-12 08:06 | Progress Note-Pre Operative ---
Pre-Operative Progress Note H&P Reviewed The H&P was reviewed, patient examined and no changes noted. Time Seen by Provider: 07:59 Date H&P Reviewed: Mar 12, 2022 Time H&P Reviewed: 07:59 Pre-Operative Diagnosis: cholelithiasis/cholecystitis VIDAL ANDREA DO Mar 12, 2022 08:06
[2022-03-12] MEDS ORDERED: fentaNYL INJ 100 MCG/2 ML AMP ONE (08:08)
[2022-03-12] MEDS ORDERED: LIDOCAINE PF 2% 5 ML (XYLOCAINE) VIAL ONE (08:08)
[2022-03-12] MEDS ORDERED: MIDAZOLAM 2 MG/2 ML (VERSED) VIAL ONE (08:08)
[2022-03-12] MEDS ORDERED: proPOfol 200 MG/20 ML (DIPRIVAN) VIAL IV ONE (08:08)
[2022-03-12] MEDS ORDERED: ROCURONIUM 10 MG/ML 5 ML SYRINGE IV ONE ×2 (08:31→08:37)
[2022-03-12] MEDS ORDERED: ONDANSETRON 4 MG/2 ML (SDV) Z0FRAN ONE (08:31)
[2022-03-12] MEDS ORDERED: SEVOFLURANE (ULTANE) 15 ML INHAL SOLN ONE (09:18)
--- NOTE | 2022-03-12 09:26 | Progress Note-Post Operative ---
Post-Operative Progess Note Surgeon (s)/Underwriting Analyst (s) Surgeon VIDAL ANDREA DO Underwriting Analyst: Yang Pre-Operative Diagnosis cholelithiasis/cholecystitis Post-Operative Diagnosis same Procedure & Operative Findings Date of Procedure 03/12/22 Procedure Performed/Findings PROCEDURE: Laparoscopic cholecystectomy with intraoperative cholangiogram. COMPLICATIONS: None. PROCEDURE: The patient was taken to the operating suite and was prepped and draped in sterile fashion. A surgical pause was performed. Just superior to the umbilicus, a 12 mm incision was made. Dissection was taken down to the fascia, which was then scored and grasped with a Zaida and the abdomen was then entered. A 12mm trocar was placed and secured with balloon. Pneumoperitoneum was achieved. A 5mm trochar place in the subxyphoid and 2 in the right upper quadrant, using the SHAPE system under direct visualiztion. The gallbladder had adhesions, which usually indicates previous gallbladder attacks and appeared thickened. The gallbladder was then grasped at the fundus and elevated in the superior direction. Adhesions w ere taken down with cautery and blunt dissection. Then able to grasp at Zeyad's pouch and pull in the inferolateral direction. The cystic duct, and cystic artery were then dissected out. Clip was placed on the distal portion of the cystic duct which was then partially transected. An arrow catheter was inserted into the duct. The cholangiogram was then performed. No filling defects and contrast made its way into the duodenum. Catheter removed. Clips were placed on proximal portion of the cystic duct and then the duct was then transected. Clips were placed along the proximal and distal portion of the cystic artery which was then transected. Hook cautery was used to dissect the gallbladder from the gallbladder fossa achieving hemostasis. The gallbladder was placed in an Endobag and removed through the 12 mm trocar site. The abdomen was then reinspected. Copious amounts of irrigation were used to irrigate the abdomen and there were no signs of active bleeding. Hemostasis had been achieved. The 12 mm fascial defect was then closed with an 0 Vicryl suture that was placed in a jqfhax-gw-lzhcc fashion. The abdomen was then desufflated, the trocars were removed. The abdomen was then washed and dried. The skin was then closed using 4-0 Monocryl in a subcuticular fashion. The abdomen was washed and dried and Skin Affix was place over incisions. Patient tolerated the procedure well without any complications and was taken to the recovery room in stable condition. Dr. Soria assisted on this case helping to make incisions, close incisions, identify anatomy and hold anatomy out of the way. Anesthesia Type GET Estimated Blood Loss Estimated blood loss (mL): scant Specimens/Packing Specimens Removed GB and contents VIDAL ANDREA DO Mar 12, 2022 09:26
--- NOTE | 2022-03-12 09:27 | Discharge Inst-Surgical ---
Discharge Inst-Surgical Depart Medication/Instructions New, Converted or Re-Newed RX: Transmitted to Pharmacy Patient Instructions Follow up Appt: Make appointment for 1 week. [phone] Instructions: No lifting greater than 20 pounds. No strenuous activity. May shower in 24 hours, no tub bath or soaking. Use incentive spirometer at home as directed. No Smoking Skin/Wound Care: May remove bandages in am. You need to leave the Dermabond on incision it will fall off on it's own. Symptoms to Report: Appetite Changes, Extremity Discoloration, Numbness/Tingling, Swelling Increased, Bleeding Excessive, Eyesight Changes, Pain Increased, Urine Color Change, Constipation(Persistent), Fever over 101 degree F, Pain/Pressure in chest, Urinating Difficulty, Cough Up/Vomit Blood, Heart Beat Irreg/Pounding, Pain/Pressure in jaw, Cramps in feet or legs, Lightheadedness, Pain/Pressure in shoulder, Diarrhea(Persistent), Memory Changes Suddenly, Questions/Concerns, Weight gain consecutive days, Dizziness/Fainting, Nausea/Vomiting, Shortness of Breath, Weight gain over 2 pounds If questions or concerns contact your physician Or seek help at emergency department. Activity Activity as Tolerated: Yes Activity Instructions: Avoid Stress to Incision Driving Instructions: No Driving/Refer to Diet Discharge Diet: Avoid Fatty Foods, Low Fat/Low Cholesterol Diet After 24 Hours: Clear Liquid if Nauseous If Any Problems/Questions/Issu: Contact Your Physician, Go to Emergency Room Skin/Wound Care Infection Signs and Symptoms: Increased Redness, Foul Odor of Wound, Increased Drainage, Skin Itchy or Has a Rash, Increased Swelling, Temperature Above 101 F Wound Care Comment: heating pad to shoulder or neck tonight for pain Bathing Instructions: Shower Stitches/Irish/Dermabond Dis: Dermabond Ice Pack: Ice On and Off Site VIDAL ANDREA DO Mar 12, 2022 09:27
[2022-03-12] MEDS ORDERED: ACHYD1T PO (09:28)
[2022-03-12] MEDS ORDERED: SUGAMMADEX 500 MG/5 ML VIAL (BRIDION) IV ONE (09:29)
[2022-03-12] MEDS ORDERED: MEPERIDINE (DEMEROL) INJ 50 MG/ML ONE (09:44)
--- NOTE | 2022-03-12 09:55 | Anesthesia-General Post-Op ---
General Patient Condition Mental Status/LOC: Same as Preop Cardiovascular: Satisfactory Nausea/Vomiting: Absent Respiratory: Satisfactory Pain: Controlled Complications: Absent Post Op Complications Complications None Follow Up Care/Instructions Patient Instructions None needed. Anesthesia/Patient Condition Patient Condition Patient is doing well, no complaints, stable vital signs, no apparent adverse anesthesia problems. No complications reported per nursing. DAVID MILLAN CRNA Mar 12, 2022 09:55
[2022-03-12] MEDS ORDERED: HYDROmorphone 2 MG/ML VIAL (DILAUDID) IV ONE (10:00)
[2022-03-12] MEDS ORDERED: MEPERIDINE (DEMEROL) INJ 50 MG/ML IVP ONE (10:00)
[2022-03-12] MEDS ORDERED: ONDANSETRON 4 MG/2 ML (SDV) Z0FRAN IVP PRN (10:00)
[2022-03-12] MEDS ORDERED: PROMETHAZINE INJ 25 MG/ML (PHENERGAN) AMP IVP ONE (10:00)
--- NOTE | 2022-03-12 10:46 | Diagnostic Imaging Report ---
INDICATION: Abdominal pain with nausea and vomiting. COMPARISON: CT dated 04/21/2019. TOTAL FLUOROSCOPY TIME: 11 seconds. TOTAL NUMBER OF FLUOROSCOPIC IMAGES SAVED: 16. FINDINGS: Multiple intraoperative and digital subtraction images of the right upper abdominal quadrant were obtained during intraoperative cholangiogram. Initial images show immediate reflux of contrast into the left and right intrahepatic biliary ducts with somewhat delayed extension of contrast through the common bile duct. Eventually, contrast does extend through the common bile duct into the small bowel. Please note, the interpreting radiologist was not present during the procedure. IMPRESSION: Fluoroscopic guidance was provided during intraoperative cholangiogram. Dictated by: Dictated on workstation # [id number]
== END 2022-03-12 11:35 | disposition home or self-care (01) ==
LOC: SDC 06:28
PROVIDERS: ATTEND Surgery
DX: K80.10 Calculus of gallbladder with chronic cholecystitis without obstruction (principal); E66.01 Morbid (severe) obesity due to excess calories; Z68.43 Body mass index [BMI] 50.0-59.9, adult
CPT/HCPCS: 76000; 84703; 87081

== ENCOUNTER 2022-03-19 07:55 | Day surgery (SDC) | payer BC ==
[2022-03-19] VITALS (11 sets, daily range): BP systolic 101–133; BP diastolic 61–81
[~2022-03-19] VITALS: Ht 170.2 cm; Wt 153.6 kg
[~2022-03-19 07:55] MED LIST changes: +ACHYD1T PO
[2022-03-19 08:40] LABS: ABSOLUTE RETIC # 94 10e9/uL (24-90); BASOPHILS # (AUTO) 0.1 10^3/uL (0.0-0.1); BASOPHILS % (AUTO) 0 % (0-10); EOSINOPHILS # (AUTO) 0.3 10^3/uL (0.0-0.3); EOSINOPHILS % (AUTO) 2 % (0-10); HEMATOCRIT 37 % (35-52); HEMOGLOBIN 12.2 g/dL (11.5-16.0); LYMPHOCYTES # (AUTO) 3.1 10^3/uL (1.0-4.0); LYMPHOCYTES % (AUTO) 25 % (12-44); MEAN CORPUSCULAR HEMOGLOBIN 28 pg (25-34); MEAN CORPUSCULAR HGB CONC 33 g/dL (32-36); MEAN CORPUSCULAR VOLUME 86 fL (80-99); MEAN PLATELET VOLUME 8.9 fL (9.0-12.2); MONOCYTES # (AUTO) 0.9 10^3/uL (0.0-1.0); MONOCYTES % (AUTO) 7 % (0-12); NEUTROPHILS # (AUTO) 7.9 10^3/uL (1.8-7.8); NEUTROPHILS % (AUTO) 64 % (42-75); PLATELET COUNT 566 10^3/uL (130-400); RETICULOCYTE % 2.17 % (0.50-2.40); WHITE BLOOD COUNT 12.3 10^3/uL (4.3-11.0)
[2022-03-19 08:56] LABS: INR 1.1 (0.8-1.4); PROTHROMBIN TIME PATIENT 14.1 SEC (12.2-14.7)
[2022-03-19] MEDS ORDERED: NS IV 1000 ML 1,000 ML IV STA (09:05)
[2022-03-19] MEDS ORDERED: MIDAZOLAM 2 MG/2 ML (VERSED) VIAL IVP ONE (09:15)
[2022-03-19] MEDS ORDERED: fentaNYL INJ 100 MCG/2 ML AMP IVP ONE (09:15)
[2022-03-19] MEDS ORDERED: LIDOCAINE 1% INJ 20 ML VIAL INJ ONE (09:15)
[2022-03-19 09:58] LABS: BAND NEUTROPHILS 1 %; BASOPHILS % (MANUAL) 1 %; EOSINOPHILS % (MANUAL) 0 %; LYMPHOCYTES % (MANUAL) 30 %; MONOCYTES % (MANUAL) 3 %; NEUTROPHILS % (MANUAL) 62 %; RBC MORPH NORMAL; REACTIVE LYMPHOCYTES 3 %
[2022-03-19] MEDS ORDERED: HYDROcodone/APAP 5 MG/325 MG (LORTAB) TAB PO PRN (11:45)
--- NOTE | 2022-03-19 13:04 | Pre-Op Note & Conscious Sedat ---
Pre-Operative Progress Note H&P Reviewed The H&P was reviewed, patient examined and no changes noted. Date H&P Reviewed: Mar 19, 2022 Time H&P Reviewed: 09:00 Pre-Op Diagnosis: leukocytosis Conscious Sedation Pre-Proced Time 09:00 ASA Score 2 For ASA 3 and 4: Consider anesthesia and medical clearance. Also, for patients with a history of failed moderate sedation consider anesthesia. Airway Lungs Heart ASA score ASA 1: a normal healthy patient ASA 2: a patient with a mild systemic disease (mid diabetes, controlled hypertension, obesity ASA 3: a patient with a severe systemic disease that limits activity (angina, COPD, prior Myocardial infarction) ASA 4: a patient with an incapacitating disease that is a constant threat to life (CHF, renal failure) ASA 5: a moribund patient not expected to survive 24 hrs. (ruptured aneurysm) ASA 6: a declared brain- patient whose organs are being harvested. For emergent operations, add the letter E after the classification Mallampati Classification Grade 2 Sedation Plan Analgesia, Amnesia, Plan communicated to team members, Discussed options with patient/fam, Discussed risks with patient/fam The patient is an appropriate candidate to undergo the planned procedure, sedation, and anesthesia. The patient immediately re-assessed prior to indication. SPIKE GUSMAN MD Mar 19, 2022 13:04
--- NOTE | 2022-03-19 19:41 | Diagnostic Imaging Report ---
INDICATION: Leukocytosis. Patient presents for CT-guided bone marrow aspiration and biopsy. FINDINGS: Patient was brought to the CT suite, placed on table in the prone position. Axial imaging through the pelvis was performed to evaluate appropriate entry site. Procedure was performed utilizing conscious sedation with radiology nursing and constant patient monitoring. Patient was given a total of 100 mcg of fentanyl intravenously and 1.5 mg of Versed intravenously. Total procedure time is approximately 5 minutes. The low back was prepped and draped in the usual sterile fashion. Small amount of 1% lidocaine was utilized for local anesthesia. Bone marrow needle was advanced and placed with its tip along the posterior cortex of the right iliac bone. Needle was advanced through the cortex utilizing the bone marrow drill. Two bone marrow aspirates were then obtained. A drill was utilized to obtain a bone marrow core biopsy. Needle was removed and hemostasis was obtained using manual compression. Patient tolerated the procedure well and left the department in stable condition. IMPRESSION: Successful CT-guided bone marrow aspiration and core biopsy. Pathology results are currently pending. Dictated by: Dictated on workstation # [id number]
== END 2022-03-19 12:45 | disposition home or self-care (01) ==
LOC: RAD 07:55 → SDC 10:30 → RAD 12:45
PROVIDERS: ATTEND Internal Medicine Hematology & Oncology
DX: D75.839 Thrombocytosis, unspecified (principal); D72.829 Elevated white blood cell count, unspecified; E66.01 Morbid (severe) obesity due to excess calories; Z68.43 Body mass index [BMI] 50.0-59.9, adult
CPT/HCPCS: 36415; 38222; 77012; 85007; 85027; 85045; 85610; 85730; 88237; 88264; 99156

== ENCOUNTER → 2022-06-19 | Outpatient (CLI) | payer BC, OTHER ==
[2022-06-19 15:54] LABS: BASOPHILS # (AUTO) 0.1 10^3/uL (0.0-0.1); BASOPHILS % (AUTO) 0 % (0-10); EOSINOPHILS # (AUTO) 0.2 10^3/uL (0.0-0.3); EOSINOPHILS % (AUTO) 1 % (0-10); HEMATOCRIT 37 % (35-52); HEMOGLOBIN 12.1 g/dL (11.5-16.0); LYMPHOCYTES # (AUTO) 3.3 X 10^3 (1.0-4.0); LYMPHOCYTES % (AUTO) 23 % (12-44); MEAN CORPUSCULAR HEMOGLOBIN 28 pg (25-34); MEAN CORPUSCULAR HGB CONC 33 g/dL (32-36); MEAN CORPUSCULAR VOLUME 86 fL (80-99); MEAN PLATELET VOLUME 8.7 fL (9.0-12.2); MONOCYTES # (AUTO) 0.7 X 10^3 (0.0-1.0); MONOCYTES % (AUTO) 5 % (0-12); NEUTROPHILS # (AUTO) 10.3 X 10^3 (1.8-7.8); NEUTROPHILS % (AUTO) 71 % (42-75); PLATELET COUNT 547 10^3/uL (130-400); WHITE BLOOD COUNT 14.5 10^3/uL (4.3-11.0)
== END ==
LOC: ONC 15:22
PROVIDERS: ATTEND Internal Medicine Hematology & Oncology
DX: D72.0 Genetic anomalies of leukocytes (principal); D64.9 Anemia, unspecified; J45.909 Unspecified asthma, uncomplicated; E66.01 Morbid (severe) obesity due to excess calories
CPT/HCPCS: 36415; 85025

== ENCOUNTER 2022-06-24 12:49 | Outpatient (RCR) | payer BC, OTHER | END 2022-07-23 | disposition home or self-care (01) | LOC: ONC 12:49 | PROVIDERS: ATTEND Internal Medicine Hematology & Oncology | DX: D72.0 Genetic anomalies of leukocytes (principal); D64.9 Anemia, unspecified; E66.01 Morbid (severe) obesity due to excess calories | CPT/HCPCS: 36415; 85025; 99213 ==

== ENCOUNTER 2022-10-11 19:50 | Emergency (ER) | payer SELFPAY ==
[~2022-10-11] VITALS: Ht 170 cm; Wt 146.9 kg
--- NOTE | 2022-10-11 20:09 | ED Abdominal Pain ---
General Chief Complaint: Abdominal/GI Problems Stated Complaint: ABD PAIN Source of Information: Patient Exam Limitations: No Limitations History of Present Illness Date Seen by Provider: Oct 11, 2022 Time Seen by Provider: 20:00 Initial Comments 27-year-old female presents emerged department today for left upper abdominal, epigastric pain. Symptoms ongoing for last 1 month. She describes this as a dull throbbing sensation. It is intermittent in her mid epigastric region. Symptoms in the left upper abdomen. On Thursday she talks to her primary provider about it. They ended up speaking without weight loss that her abdominal pain reported to the patient. Concerning to her this evening was that she had a sneezing episode and had worsening pain in that same area. She does describe an intermittent popping sensation with deep inspiration in that area over the last 4 months as well that was worse this evening. No nausea or vomiting. No changes in bowel or bladder habits. No bloody or dark tarry stools. No acid reflux type symptoms. She has had her gallbladder and appendix removed. She has PCOS and does not have regular menstrual cycles. Denies any new vaginal symptoms. Allergies and Home Medications Allergies Coded Allergies: No Known Drug Allergies (Unverified , 03/12/22) Patient Home Medication List Home Medication List Reviewed: Yes Albuterol Sulfate (Ventolin Hfa) 1 Puff Puff, 2 PUFF INH Q4H, (Reported) Entered as Reported by: NOÉ ZELAYA on 03/06/22 1250 Aluminum Chloride (Drysol) 35 Ml Solution, 35 ML TP HS, (Reported) Entered as Reported by: NOÉ ZELAYA on 03/06/22 1250 Aripiprazole (Abilify) 15 Mg Tablet, 15 MG PO DAILY, (Reported) Entered as Reported by: NOÉ ZELAYA on 03/06/22 1250 Cholecalciferol (Vitamin D3) (Vitamin D3) 25 Mcg Capsule, 25 MCG PO DAILY, (Reported) Entered as Reported by: NOÉ ZELAYA on 03/06/22 1250 Escitalopram Oxalate (Lexapro) 5 Mg Tablet, 5 MG PO DAILY, (Reported) Entered as Reported by: NOÉ ZELAYA on 03/06/22 1250 Hydrocodone Bit/Acetaminophen (HYDROcodone/APAP 10/325 TABLET) 1 Ea Tab, 1 TAB PO Q6H Prescribed by: VIDAL ANDREA on 03/12/22 0928 Review of Systems Review of Systems Constitutional: no symptoms reported EENTM: No Symptoms Reported Respiratory: No Symptoms Reported Cardiovascular: No Symptoms Reported Gastrointestinal: Abdominal Pain Genitourinary: No Symptoms Reported Musculoskeletal: no symptoms reported Skin: no symptoms reported Psychiatric/Neurological: No Symptoms Reported Endocrine: No Symptoms Reported Hematologic/Lymphatic: No Symptoms Reported Past Ducxmaa-Zcdrmw-Dlkcsd Hx Patient Social History Tobacco Use?: No Use of E-Cig and/or Vaping dev: No Substance use?: No Alcohol Use?: No Seasonal Allergies Seasonal Allergies: Yes Past Medical History Surgeries: Yes (wisdom teeth, APPENDIX) Appendectomy Respiratory: Yes (USES INHALERS) Asthma Cardiac: No Neurological: No Female Reproductive Disorders: Polycystic Ovarian Dis Sexually Transmitted Disease: No Genitourinary: No Gastrointestinal: Yes (GALLBLADDER PAIN) Gall Bladder Disease Musculoskeletal: No Endocrine: No HEENT: Yes (WEARS GLASSES) Cancer: No Psychosocial: No Integumentary: No Blood Disorders: No (WHITE CELLS HIGH - HAVING BONE MARROW BX ON 03/19) Family Medical History Reviewed Nursing Family Hx No Pertinent Family Hx, COPD, Stroke Physical Exam Vital Signs Vital Signs - First Documented 10/11/22 19:55 Temp 36.9 Pulse 79 Resp 14 B/P (MAP) 137/86 (103) Pulse Ox 97 O2 Delivery Room Air Capillary Refill : Height/Weight/BMI Height: 5'7.00" Weight: 283lbs. 0.0oz. 128.430282hn; 58.52 BMI Method:Stated General Appearance: WD/WN, no apparent distress HEENT: normal ENT inspection, pharynx normal Neck: non-tender, full range of motion, supple, normal inspection Respiratory: chest non-tender, lungs clear, normal breath sounds, no respiratory distress, no accessory muscle use Cardiovascular: regular rate, rhythm, no edema, no gallop, no JVD, no murmur Gastrointestinal: normal bowel sounds, soft, no organomegaly, no pulsatile mas s, tenderness (Mild tenderness left upper quadrant without rebound or guarding. No mass organomegaly. No skin changes.) Extremities: normal range of motion, non-tender, normal inspection, no pedal edema, no calf tenderness, normal capillary refill Back: normal inspection, no CVA tenderness, no vertebral tenderness Neurologic/Psychiatric: alert, normal mood/affect, oriented x 3 Skin: normal color, warm/dry Lymphatic: no adenopathy Progress/Results/Core Measures Results/Orders Lab Results Laboratory Tests Test 10/11/22 20:00 10/11/22 20:30 Range/Units Urine Color YELLOW Urine Clarity CLEAR Urine pH 5.5 5-9 Urine Specific [place] >=1.030 1.016-1.022 Urine Protein NEGATIVE NEGATIVE Urine Glucose (UA) NEGATIVE NEGATIVE Urine Ketones NEGATIVE NEGATIVE Urine Nitrite NEGATIVE NEGATIVE Urine Bilirubin NEGATIVE NEGATIVE Urine Urobilinogen 0.2 < = 1.0 MG/DL Urine Leukocyte Esterase NEGATIVE NEGATIVE Urine RBC (Auto) TRACE-I H NEGATIVE Urine RBC NONE /HPF Urine WBC 0-2 /HPF Urine Squamous Epithelial Cells 5-10 /HPF Urine Crystals NONE /LPF Urine Bacteria FEW H /HPF Urine Casts NONE /LPF Urine Mucus SMALL H /LPF Urine Culture Indicated YES Urine Test NEGATIVE NEGATIVE White Blood Count 19.3 H 4.3-11.0 10^3/uL Red Blood Count 4.60 3.80-5.11 10^6/uL Hemoglobin 12.7 11.5-16.0 g/dL Hematocrit 39 35-52 % Mean Corpuscular Volume 84 80-99 fL Mean Corpuscular Hemoglobin 28 25-34 pg Mean Corpuscular Hemoglobin Concent 33 32-36 g/dL Red Cell Distribution Width 14.3 10.0-14.5 % Platelet Count 535 H 130-400 10^3/uL Mean Platelet Volume 9.1 9.0-12.2 fL Immature Granulocyte % (Auto) 1 % Neutrophils (%) (Auto) 69 42-75 % Lymphocytes (%) (Auto) 24 12-44 % Monocytes (%) (Auto) 5 0-12 % Eosinophils (%) (Auto) 1 0-10 % Basophils (%) (Auto) 0 0-10 % Neutrophils # (Auto) 13.3 H 1.8-7.8 10^3/uL Lymphocytes # (Auto) 4.6 H 1.0-4.0 10^3/uL Monocytes # (Auto) 1.0 0.0-1.0 10^3/uL Eosinophils # (Auto) 0.3 0.0-0.3 10^3/uL Basophils # (Auto) 0.1 0.0-0.1 10^3/uL Immature Granulocyte # (Auto) 0.1 0.0-0.1 10^3/uL Sodium Level 139 135-145 MMOL/L Potassium Level 3.8 3.6-5.0 MMOL/L Chloride Level 105 98-107 MMOL/L Carbon Dioxide Level 20 L 21-32 MMOL/L Anion Gap 14 5-14 MMOL/L Blood Urea Nitrogen 11 7-18 MG/DL Creatinine 0.81 0.60-1.30 MG/DL Estimat Glomerular Filtration Rate 103 BUN/Creatinine Ratio 14 Glucose Level 112 H 70-105 MG/DL Calcium Level 9.7 8.5-10.1 MG/DL Corrected Calcium 9.8 8.5-10.1 MG/DL Total Bilirubin 0.2 0.1-1.0 MG/DL Aspartate Amino Transf (AST/SGOT) 14 5-34 U/L Alanine Aminotransferase (ALT/SGPT) 18 0-55 U/L Alkaline Phosphatase 108 40-136 U/L Total Protein 7.8 6.4-8.2 GM/DL Albumin 3.9 3.2-4.5 GM/DL Lipase 30 8-78 U/L My Orders Orders - QUINN LORENZO DO Hcg,Qualitative Urine (10/11/22 20:02) Ua Culture If Indicated (10/11/22 20:02) Comprehensive Metabolic Panel (10/11/22 20:06) Lipase (10/11/22 20:06) Cbc With Automated Diff (10/11/22 20:06) Manual Differential (10/11/22 20:30) Urine Culture (10/11/22 20:00) Vital Signs/I&O 10/11/22 19:55 Temp 36.9 Pulse 79 Resp 14 B/P (MAP) 137/86 (103) Pulse Ox 97 O2 Delivery Room Air Departure Communication (Admissions) Patient is hemodynamically stable. Only very minimal pain on exam if any at all. She certainly has a nonsurgical abdominal exam. She does have leukocytosis, unknown origin however she is afebrile, not tachycardic nor hypotensive. I talked to her about this and she said it is been this way for a couple of years. She has had a bone marrow biopsy in the past which was negative unclear etiology at this time. I recommend she discuss possible upper endoscopy with her primary care doctor should her symptoms persist. No indication for CT scanning at this time given the location of her pain the left upper quadrant, likely very low yield. She be discharged home with supportive care and close primary care follow-up. Impression Primary Impression: Abdominal pain Qualified Codes: R10.12 - Left upper quadrant pain Additional Impression: Leukocytosis Qualified Codes: D72.829 - Elevated white blood cell count, unspecified Disposition: HOME, SELF-CARE Condition: Stable Departure-Patient Inst. Referrals: [facility] (PCP/Family) Primary Care Physician Add. Discharge Instructions: I would try an ohbg-xxe-heuqqnr medicine such as Pepcid for acid for the next couple of weeks to see if this might help you. Follow-up with your primary doctor should your symptoms persist. There is medication for pancreatitis, bleeding ulcers or other emergent medical condition at this time. Return to the emergency department for any severe concerns All discharge instructions reviewed with patient and/or family. Voiced understanding. QUINN LORENZO DO Oct 11, 2022 20:09
[2022-10-11 20:10] LABS: BILIRUBIN,URINE NEGATIVE (NEGATIVE); CLARITY,URINE CLEAR; COLOR,URINE YELLOW; GLUCOSE, URINE (UA) NEGATIVE (NEGATIVE); KETONES,URINE NEGATIVE (NEGATIVE); LEUKOCYTE ESTERASE ,URINE NEGATIVE (NEGATIVE); NITRITE,URINE NEGATIVE (NEGATIVE); PH,URINE 5.5 (5-9); PROTEIN,URINE NEGATIVE (NEGATIVE)
[2022-10-11 20:25] LABS: BACTERIA,URINE FEW /HPF; WBC,URINE 0-2 /HPF
[2022-10-11 20:35] LABS: BASOPHILS # (AUTO) 0.1 10^3/uL (0.0-0.1); BASOPHILS % (AUTO) 0 % (0-10); EOSINOPHILS # (AUTO) 0.3 10^3/uL (0.0-0.3); EOSINOPHILS % (AUTO) 1 % (0-10); HEMATOCRIT 39 % (35-52); HEMOGLOBIN 12.7 g/dL (11.5-16.0); LYMPHOCYTES # (AUTO) 4.6 10^3/uL (1.0-4.0); LYMPHOCYTES % (AUTO) 24 % (12-44); MEAN CORPUSCULAR HEMOGLOBIN 28 pg (25-34); MEAN CORPUSCULAR HGB CONC 33 g/dL (32-36); MEAN CORPUSCULAR VOLUME 84 fL (80-99); MEAN PLATELET VOLUME 9.1 fL (9.0-12.2); MONOCYTES % (AUTO) 5 % (0-12); NEUTROPHILS # (AUTO) 13.3 10^3/uL (1.8-7.8); NEUTROPHILS % (AUTO) 69 % (42-75); PLATELET COUNT 535 10^3/uL (130-400); WHITE BLOOD COUNT 19.3 10^3/uL (4.3-11.0)
[2022-10-11 21:13] LABS: POTASSIUM 3.8 MMOL/L (3.6-5.0)
[2022-10-11 21:14] LABS: ALBUMIN 3.9 GM/DL (3.2-4.5); BILIRUBIN,TOTAL 0.2 MG/DL (0.1-1.0); CALCIUM 9.7 MG/DL (8.5-10.1); CREATININE SERUM 0.81 MG/DL (0.60-1.30); TOTAL PROTEIN 7.8 GM/DL (6.4-8.2)
[2022-10-11 21:28] VITALS: BP 139/83
[2022-10-11 22:12] LABS: BAND NEUTROPHILS 1 %; EOSINOPHILS % (MANUAL) 5 %; LYMPHOCYTES % (MANUAL) 22 %; MONOCYTES % (MANUAL) 3 %; NEUTROPHILS % (MANUAL) 69 %; POIKILOCYTOSIS SLIGHT
[2022-10-11 22:13] LABS: ANISOCYTOSIS SLIGHT; PLATELET ESTIMATE SLIGHTLY ELEVATED
== END 2022-10-11 21:28 | disposition home or self-care (01) ==
LOC: EDUNIT# 19:50 → ER 19:53
DX: R10.12 Left upper quadrant pain (principal); R10.13 Epigastric pain; D72.829 Elevated white blood cell count, unspecified; Z32.02 Encounter for pregnancy test, result negative; Z28.310 Unvaccinated for COVID-19
CPT/HCPCS: 36415; 80053; 81000; 83690; 84703; 85007; 85027; 87088; 99282

== ENCOUNTER 2022-11-10 22:54 | Emergency (ER) | payer OTHER ==
--- NOTE | 2022-11-10 23:37 | ED Abdominal Pain ---
General Chief Complaint: Abdominal/GI Problems Stated Complaint: NAUSEA, HERNIA Nursing Triage Note: PT ARRIVAL TO ER VIA PRIVATE VEHICLE FROM HOME WITH COMPLAINT OF NAUSEA X3 DAYS. PT STATES THAT SHE RECENTLY SAW PCP FOR ABDOMINAL PAIN AND WITH CT WAS DIAGNOSED WITH 3 INCH X 3 INCH HERNIA IN ABDOMEN. PT HAS APPOINTMENT WITH DR. ANDREA TOMORROW AFTERNOON. PT STATES THAT SHE WAS TOLD BY PCP TO COME TO ER IF NAUSEA WORSENED. PT HASN'T HAD ANY EPISODES OF VOMITING. Source of Information: Patient Exam Limitations: No Limitations History of Present Illness Date Seen by Provider: Nov 10, 2022 Time Seen by Provider: 23:37 Initial Comments This 27-year-old young lady presents to the emergency room with complaints of epigastric pain. She saw Lori Oden at the [facility] clinic and states Lori was concerned she may have a hernia. She was referred to Dr. Andrea where she has an appointment tomorrow at 1300. She has had some nausea for several days but no vomiting. She denies . Allergies and Home Medications Allergies Coded Allergies: No Known Drug Allergies (Unverified , 03/12/22) Patient Home Medication List Home Medication List Reviewed: Yes Albuterol Sulfate (Ventolin Hfa) 1 Puff Puff, 2 PUFF INH Q4H, (Reported) Entered as Reported by: NOÉ ZELAYA on 03/06/22 1250 Aluminum Chloride (Drysol) 35 Ml Solution, 35 ML TP HS, (Reported) Entered as Reported by: NOÉ ZELAYA on 03/06/22 1250 Aripiprazole (Abilify) 15 Mg Tablet, 15 MG PO DAILY, (Reported) Entered as Reported by: NOÉ ZELAYA on 03/06/22 1250 Cholecalciferol (Vitamin D3) (Vitamin D3) 25 Mcg Capsule, 25 MCG PO DAILY, (Reported) Entered as Reported by: NOÉ ZELAYA on 03/06/22 1250 Escitalopram Oxalate (Lexapro) 5 Mg Tablet, 5 MG PO DAILY, (Reported) Entered as Reported by: NOÉ ZELAYA on 03/06/22 1250 Hydrocodone Bit/Acetaminophen (HYDROcodone/APAP 10/325 TABLET) 1 Ea Tab, 1 TAB PO Q6H Prescribed by: VIDAL ANDREA on 03/12/22 0928 Ondansetron (Ondansetron Odt) 4 Mg Tab.rapdis, 4 MG SL Q4H PRN for NAUSEA/VOMITING Prescribed by: THA GARNER on 11/11/22 0013 Review of Systems Review of Systems Constitutional: no symptoms reported EENTM: No Symptoms Reported Respiratory: No Symptoms Reported Cardiovascular: No Symptoms Reported Gastrointestinal: See HPI Genitourinary: No Symptoms Reported Musculoskeletal: no symptoms reported Skin: no symptoms reported Psychiatric/Neurological: No Symptoms Reported Endocrine: No Symptoms Reported Hematologic/Lymphatic: No Symptoms Reported Past Esppxkq-Zhrrua-Trpwlk Hx Patient Social History Tobacco Use?: No Use of E-Cig and/or Vaping dev: No Substance use?: No Alcohol Use?: Yes Alcohol type: Beer, Hard Liquor, Wine Alcohol Frequency: Once in a while Pt feels they are or have been: No Immunizations Up To Date Influenza Vaccine Up-to-Date: No; Not Current Seasonal Allergies Seasonal Allergies: Yes Past Medical History Surgeries: Yes (wisdom teeth, APPENDIX) Appendectomy, Gallbladder Respiratory: Yes (USES INHALERS) Asthma Cardiac: No Neurological: No Female Reproductive Disorders: Polycystic Ovarian Dis Sexually Transmitted Disease: No Genitourinary: No Gastrointestinal: Yes (GALLBLADDER PAIN) Gall Bladder Disease Musculoskeletal: No Endocrine: No HEENT: Yes (WEARS GLASSES) Cancer: No Psychosocial: No Integumentary: No Blood Disorders: No (WHITE CELLS HIGH - HAVING BONE MARROW BX ON 03/19) Family Medical History No Pertinent Family Hx, COPD, Stroke Physical Exam Vital Signs Vital Signs - First Documented 11/10/22 23:03 Temp 37.0 Pulse 86 Resp 18 B/P (MAP) 142/87 (105) Pulse Ox 98 O2 Delivery Room Air Capillary Refill : Less Than 3 Seconds Height/Weight/BMI Height: 5'7.00" Weight: 283lbs. 0.0oz. 128.245675td; 50.00 BMI Method:Stated General Appearance: WD/WN, no apparent distress, obese HEENT: PERRL/EOMI, normal ENT inspection Neck: normal inspection Respiratory: lungs clear, normal breath sounds, no respiratory distress Cardiovascular: regular rate, rhythm, no edema, no murmur Gastrointestinal: normal bowel sounds, soft, tenderness (Epigastrium) Extremities: normal inspection, no pedal edema Neurologic/Psychiatric: no motor/sensory deficits, alert, normal mood/affect, oriented x 3 Skin: normal color, warm/dry Progress/Results/Core Measures Results/Orders My Orders Orders - THA MEDEL MD Ondansetron Oral Dissolve Tab (Zofran (11/10/22 23:45) Lidocaine 2% Viscous 15 Ml (Xylocaine Vi (11/10/22 23:45) Antacid Suspension (Mylanta Suspension (11/10/22 23:45) Pantoprazole Tablet (Protonix Tablet) (11/11/22 00:15) Pantoprazole Tablet (Protonix Tablet) (11/11/22 00:08) Medications Given in ED Current Medications Medications Dose Ordered Sig/Shania Route Start Time Stop Time Status Last Admin Dose Admin Al Hydrox/Mg Hydrox/Simethicone 30 ml ONCE ONCE PO 11/10/22 23:45 11/10/22 23:46 DC 11/10/22 23:51 30 ML Lidocaine HCl 15 ml ONCE ONCE PO 11/10/22 23:45 11/10/22 23:46 DC 11/10/22 23:51 15 ML Ondansetron HCl 8 mg ONCE ONCE SL 11/10/22 23:45 11/10/22 23:46 DC 11/10/22 23:51 8 MG Pantoprazole Sodium 40 mg ONCE ONCE PO 11/11/22 00:15 11/11/22 00:16 DC 11/11/22 00:30 40 MG Vital Signs/I&O 11/10/22 11/11/22 23:03 00:18 Temp 37.0 Pulse 86 82 Resp 18 18 B/P (MAP) 142/87 (105) 133/83 Pulse Ox 98 99 O2 Delivery Room Air Room Air Blood Pressure Mean: 105 Progress Progress Note : Progress Note Patient had point tenderness in the epigastrium which resolved with GI cocktail. See discharge instructions for further discussion. A dose of oral Protonix was given before discharge. Departure Impression Primary Impression: Epigastric pain Additional Impression: Nausea Disposition: 01 HOME, SELF-CARE Condition: Improved Departure-Patient Inst. Decision time for Depature: 00:10 Referrals: [facility] (PCP/Family) Primary Care Physician Patient Instructions: Acid Reflux and GERD in Adults (DC), Gastritis ED, Hiatal Hernia Add. Discharge Instructions: Your pain was relieved tonight with lidocaine and Mylanta. This suggests the source of your pain is coming from the lining of the stomach or esophagus. This could be due to gastritis, esophagitis, hiatal hernia, and/or ulcer. You should follow through with your appointment with Dr. Andrea. Scoping of your stomach and esophagus may be recommended for further evaluation. In the meantime, use an antacid such as omeprazole 20 mg twice daily to help your stomach heal and reduce inflammation. Use this continuously for at least a couple of weeks. For more immediate relief of pain you may take Tylenol (acetaminophen) up to 1000 mg every 6 hours as needed as well as Tums per package instructions. Avoid the following: Eating large meals, eating close to bedtime, caffeine, chocolate, carbonation, citrus fruits and juices, tomato products, alcohol, tobacco, mints, spicy foods, fatty/greasy foods, NSAID medications such as ibuprofen or naproxen, or anything else you know irritates your stomach. Sleeping with your head elevated can help reduce acid reflux. Weight reduction can help reduce causes of this pain. Use Zofran (ondansetron) as prescribed for nausea or vomiting. Return to care if you have worsening symptoms despite following these instructions. All discharge instructions reviewed with patient and/or family. Voiced understanding. Scripts Ondansetron (Ondansetron Odt) 4 Mg Tab.rapdis 4 MG SL Q4H PRN for NAUSEA/VOMITING, #10 TAB Prov: THA MEDEL MD 11/11/22 Copy Copies To 1: VIDAL ANDREA DO Copies To 2: [facility]/THA CORONADO MD Nov 10, 2022 23:37
[2022-11-10] MEDS ORDERED: ANTACID SUSP 30 ML UDC (MYLANTA) PO ONE (23:45)
[2022-11-10] MEDS ORDERED: LIDOCAINE 2% VISCOUS 15 ML UDC PO ONE (23:45)
[2022-11-10] MEDS ORDERED: ONDANSETRON 4 MG (ZOFRAN) ORAL DISSOLVE TAB SL ONE (23:45)
[2022-11-11] MEDS ORDERED: PANTOPRAZOLE 20 MG TABLET (PROTONIX) PO STA (00:08)
[2022-11-11] MEDS ORDERED: ONDA4TAB11 SL (00:13)
[2022-11-11] MEDS ORDERED: PANTOPRAZOLE 40 MG (PROTONIX) TAB PO ONE (00:15)
[2022-11-11 00:18] VITALS: BP 133/83
== END 2022-11-11 00:30 | disposition home or self-care (01) ==
LOC: EDUNIT# 22:54 → ER 22:56
DX: R10.13 Epigastric pain (principal); R11.0 Nausea; Z28.310 Unvaccinated for COVID-19; Z87.19 Personal history of other diseases of the digestive system; Z90.49 Acquired absence of other specified parts of digestive tract
CPT/HCPCS: 99283

== ENCOUNTER 2022-11-13 05:47 | Outpatient (CLI) | payer SELFPAY ==
[~2022-11-13] VITALS: Ht 170.1 cm; Wt 145.0 kg
[~2022-11-13 05:47] MED LIST changes: +ONDA4TAB11 SL
[2022-11-19] MEDS ORDERED: METF-399 PO (15:08)
[2022-11-21] MEDS ORDERED: ACHYD1T PO (11:25)
== END 2022-11-19 15:42 | disposition home or self-care (01) ==
LOC: PREOP 05:47
PROVIDERS: ATTEND Surgery
DX: Z01.818 Encounter for other preprocedural examination (principal); K43.2 Incisional hernia without obstruction or gangrene

== ENCOUNTER 2022-11-21 08:10 | Day surgery (SDC) | payer OTHER ==
[2022-11-21] VITALS (11 sets, daily range): BP systolic 107–139; BP diastolic 58–93
[~2022-11-21] VITALS: Ht 170.1 cm; Wt 145.0 kg
[~2022-11-21 08:10] MED LIST changes: +METF-399 PO
[2022-11-21] MEDS ORDERED: BUP/EPI 0.25% 1:200,000 (MARCAINE) 30 ML VIAL ONE (08:31)
[2022-11-21] MEDS: LACTATED RINGERS 1,000 ML IV PRN ×2 (08:41→10:25)
[2022-11-21] MEDS ORDERED: NS (IVPB) 50 ML ONE (08:43)
[2022-11-21] MEDS ORDERED: ceFAZolin INJECTION 2,000 MG ONE (08:43)
[2022-11-21] MEDS ORDERED: ceFAZolin INJECTION 2,000 MG in NS (IVPB) 50 ML IV ONE (08:45)
[2022-11-21] MEDS ORDERED: SEVOFLURANE (ULTANE) 15 ML INHAL SOLN ONE ×2 (09:53→10:51)
[2022-11-21] MEDS ORDERED: LIDOCAINE PF 2% 5 ML (XYLOCAINE) VIAL ONE (09:53)
[2022-11-21] MEDS ORDERED: proPOfol 200 MG/20 ML (DIPRIVAN) VIAL IV ONE (09:53)
[2022-11-21] MEDS ORDERED: ONDANSETRON 4 MG/2 ML (SDV) Z0FRAN ONE ×2 (09:53→12:01)
[2022-11-21] MEDS ORDERED: ROCURONIUM 10 MG/ML 5 ML SYRINGE IV ONE (09:53)
[2022-11-21] MEDS ORDERED: fentaNYL INJ 100 MCG/2 ML AMP ONE ×2 (09:53→11:16)
[2022-11-21] MEDS ORDERED: MIDAZOLAM 2 MG/2 ML (VERSED) VIAL ONE (09:54)
--- NOTE | 2022-11-21 10:06 | Progress Note-Pre Operative ---
Pre-Operative Progress Note Date of Available H&P: Nov 11, 2022 Date H&P Reviewed: Nov 21, 2022 Time H&P Reviewed: 09:58 History & Physical: H&P Reviewed, Patient Examed, No changes noted Pre-Operative Diagnosis: Incarcerated Incisional hernia VIDAL ANDREA DO Nov 21, 2022 10:06
[2022-11-21] MEDS ORDERED: BUP/EPI 0.25% 1:200,000 (MARCAINE) 30 ML VIAL INJ ONE (10:35)
[2022-11-21] MEDS ORDERED: NEOSTIGMINE 3 MG/3 ML VIAL ONE (11:04)
[2022-11-21] MEDS ORDERED: GLYCOPYRROLATE 0.2 MG/ML (ROBINUL) 2 ML VIAL ONE (11:04)
--- NOTE | 2022-11-21 11:23 | Progress Note-Post Operative ---
Post-Operative Progess Note Surgeon (s)/Security Operations Analyst (s) Surgeon VIDAL ANDREA DO Security Operations Analyst: Yang Pre-Operative Diagnosis Incarcerated Incisional hernia Post-Operative Diagnosis same Procedure & Operative Findings Date of Procedure 11/21/22 Procedure Performed/Findings PROCEDURE: Laparoscopic Incisional/Ventral hernia repair with mesh. COMPLICATIONS: None. INDICATIONS: The patient is a 27, female with an incarcerated incisional hernia, which has continued to increase in size and cause discomfort. The patient was explained the risk and benefits of the procedure; including mesh failure, which is higher chance because of her being overweight. She wished to proceed with the procedure. Consent was signed on the chart. DESCRIPTION OF PROCEDURE: The patient was taken into the operating suite, prepped and draped in sterile fashion. Surgical pause was performed. Local anesthetic was infiltrated in left upper quadrant. A #11 blade scalpel was used to make a small skin incision. Cautery was used to dissect down to the fascia, which was then scored and divided the muscle, went through the posterior sheath and a balloon trocar was inserted into the abdomen. The abdomen was then insufflated. Incarcerated incisional/ ventral hernia seen with omentum stuck in the defect. A 5 mm trocar was placed in the right middle abdomen about at umbilicus level and a 5 mm trocar was placed in left lower quadrant. The defect was then closed using 0 Vicryl with a Kike-Aijth; t hree separate single sutures (through three separate stab incisions). Echo Ventralight mesh 15 x 10 cm was then inserted in the abdomen grabbed through the stab incision in the midline. The defect was approximately 5 cm long by 3cm wide. The balloon was inflated on the mesh. Circumferential tacks were placed with a SecureStrap Tacker. The balloon was then removed and inner crown was created as well. The mesh was tacked with pressure being decreased. The 12 mm fascial defect was then closed using 0 Vicryl and the Kike-Ajith. The abdomen was then desufflated,the trocars were removed. The skin was then closed using 4-0 Monocryl in a running subcuticular fashion. The abdomen was washed and dried and Skin Affix was placed over the incisions. The patient tolerated procedure well without any complications. She was taken to recovery room in stable condition. Dr. Soria helped to make incisions, close incisions, hold anatomy out of the way and place tacks. Anesthesia Type GET Estimated Blood Loss Estimated blood loss (mL): scant Specimens/Packing Specimens Removed none VIDAL ANDREA DO Nov 21, 2022 11:23
[2022-11-21] MEDS ORDERED: ACHYD1T PO (11:25)
--- NOTE | 2022-11-21 11:26 | Discharge Inst-Surgical ---
Discharge Inst-Surgical Depart Medication/Instructions New, Converted or Re-Newed RX: Transmitted to Pharmacy Patient Instructions Follow up Appt: Make appointment for 1 week. [phone] Instructions: No lifting greater than 20 pounds. No strenuous activity. May shower in 24 hours, no tub bath or soaking. Use incentive spirometer at home as directed. No Smoking Skin/Wound Care: May remove bandages in am. You need to leave the Dermabond on incision it will fall off on it's own. Symptoms to Report: Appetite Changes, Extremity Discoloration, Numbness/Tingling, Swelling Increased, Bleeding Excessive, Eyesight Changes, Pain Increased, Urine Color Change, Constipation(Persistent), Fever over 101 degree F, Pain/Pressure in chest, Urinating Difficulty, Cough Up/Vomit Blood, Heart Beat Irreg/Pounding, Pain/Pressure in jaw, Cramps in feet or legs, Lightheadedness, Pain/Pressure in shoulder, Diarrhea(Persistent), Memory Changes Suddenly, Questions/Concerns, Weight gain consecutive days, Dizziness/Fainting, Nausea/Vomiting, Shortness of Breath, Weight gain over 2 pounds If questions or concerns contact your physician Or seek help at emergency department. Activity Activity as Tolerated: Yes Activity Instructions: Avoid Stress to Incision Driving Instructions: No Driving/Refer to Dr. Garcia Discharge Diet: No Restrictions Diet After 24 Hours: Clear Liquid if Nauseous If Any Problems/Questions/Issu: Contact Your Physician, Go to Emergency Room Skin/Wound Care Infection Signs and Symptoms: Increased Redness, Foul Odor of Wound, Increased Drainage, Skin Itchy or Has a Rash, Increased Swelling, Temperature Above 101 F Wound Care Comment: heating pad to shoulder or neck tonight for pain Bathing Instructions: Shower Stitches/[place]/Dermabond Dis: [place] VIDAL ANDREA DO Nov 21, 2022 11:26
[2022-11-21] MEDS ORDERED: ONDANSETRON 4 MG/2 ML (SDV) Z0FRAN IVP PRN (11:45)
[2022-11-21] MEDS ORDERED: HYDROmorphone 2 MG/ML VIAL (DILAUDID) IV ONE (11:45)
[2022-11-21] MEDS ORDERED: morphine INJ 10 MG/ML 1ML (SYR OR VIAL) IVP ONE (11:45)
[2022-11-21] MEDS ORDERED: morphine INJ 10 MG/ML 1ML (SYR OR VIAL) ONE (11:46)
--- NOTE | 2022-11-21 12:10 | Anesthesia-General Post-Op ---
General Patient Condition Mental Status/LOC: Same as Preop Cardiovascular: Satisfactory Nausea/Vomiting: Absent Respiratory: Satisfactory Pain: Controlled Complications: Absent Post Op Complications Complications None Follow Up Care/Instructions Patient Instructions None needed. Anesthesia/Patient Condition Patient Condition Patient is doing well in PACU. She did complain of abd pain, which is to be expected but has stable vital signs, no apparent adverse anesthesia problems. No complications reported per nursing. DAYANA WOOTEN DO Nov 21, 2022 12:10
[2022-11-21] MEDS ORDERED: HYDROcodone/APAP 5 MG/325 MG (LORTAB) TAB ONE (12:28)
[2022-11-21] MEDS ORDERED: HYDROcodone/APAP 5 MG/325 MG (LORTAB) TAB PO ONE (12:30)
== END 2022-11-21 13:37 | disposition home or self-care (01) ==
LOC: SDC 08:10
PROVIDERS: ATTEND Surgery
DX: K43.0 Incisional hernia with obstruction, without gangrene (principal); E66.01 Morbid (severe) obesity due to excess calories; Z68.43 Body mass index [BMI] 50.0-59.9, adult; Z28.310 Unvaccinated for COVID-19
CPT/HCPCS: 49655; 84703; 87081; C1781

== ENCOUNTER 2022-11-25 19:20 | Emergency (ER) | payer SELFPAY ==
[~2022-11-25] VITALS: Ht 170 cm; Wt 146.0 kg
--- NOTE | 2022-11-25 20:28 | ED Cough/URI ---
General Chief Complaint: Post OP Complications/Pain Stated Complaint: POST OP HERNIA 11/21 - FEVER -COUGH - RASH Nursing Triage Note: Patient presented to the ER tonight with complaints of a cough since Thursday and a fever that began tonight. She advised when she took her temperature tonight that it was 101.4. She advised she had a hernia repair on Thursday with Dr. Andrea. Patient advised that she has had a rash on her left side x 2 days that is itching as well. Source: patient, family Exam Limitations: no limitations (YIN BRAXTON) History of Present Illness Date Seen by Provider: Nov 25, 2022 Time Seen by Provider: 20:00 Initial Comments 27 F 5 days s/p hernia repair presents 4 day hx of cough and 1 day hx of fever and associated rash. Rash is located under the left breat and started out as individual macules and coalesced into a plaque. Pt notes she is allergic to adhesive tape and had some placed on abdominal wall post procedure. Pt notes cough has been productive that started out with a red tint and changed into a yellow mucus color. Pt had been able to tolerate liquids but has only ate once since procedure and has had some mild nausea. Pt is able to void w/o complaints and had first BM yesterday since procedure that was w/o difficulty. Pt has been diaphoretic on multiple occasions since surgery. Denies any chest pain, SOB, dizziness, or diarrhea. Timing/Duration: other (past 4 days ) Severity/Quality: productive cough Prior Episodes/Possible Cause: no prior episodes Associated Symptoms: chest pain/soreness, cough, fever/chills (JENARO BRAXTONULTON) Allergies and Home Medications Allergies Coded Allergies: adhesive tape (Verified Allergy, Mild, Rash, 11/19/22) Patient Home Medication List Home Medication List Reviewed: Yes (SARACHELYIN) Albuterol Sulfate (Ventolin Hfa) 1 Puff Puff, 2 PUFF INH Q4H, (Reported) Entered as Reported by: NOÉ ZELAYA on 03/06/22 1250 Aluminum Chloride (Drysol) 35 Ml Solution, 35 ML TP HS, (Reported) Entered as Reported by: NOÉ ZELAYA on 03/06/22 1250 Cholecalciferol (Vitamin D3) (Vitamin D3) 25 Mcg Capsule, 25 MCG PO DAILY, (Reported) Entered as Reported by: NOÉ ZELAYA on 03/06/22 1250 Hydrocodone Bit/Acetaminophen (HYDROcodone/APAP 10/325 TABLET) 1 Ea Tab, 1 TAB PO Q6H Prescribed by: VIDAL ANDREA on 11/21/22 1126 Metformin HCl (Metformin HCl) Unknown Strength Tablet, Unknown Dose PO, (Reported) Entered as Reported by: DAYSI MARTÍNEZ on 11/19/22 1508 Discontinued Medications Aripiprazole (Abilify) 15 Mg Tablet, 15 MG PO DAILY, (Reported) Discontinued Reason: No Longer Taking Entered as Reported by: NOÉ ZELAYA on 03/06/22 1250 Escitalopram Oxalate (Lexapro) 5 Mg Tablet, 5 MG PO DAILY, (Reported) Discontinued Reason: No Longer Taking Entered as Reported by: NOÉ ZELAYA on 03/06/22 1250 Hydrocodone Bit/Acetaminophen (HYDROcodone/APAP 10/325 TABLET) 1 Ea Tab, 1 TAB PO Q6H Discontinued Reason: No Longer Taking Prescribed by: VIDAL ANDREA on 03/12/22 0928 Ondansetron (Ondansetron Odt) 4 Mg Tab.rapdis, 4 MG SL Q4H PRN for NAUSEA/VOMITING Discontinued Reason: No Longer Taking Prescribed by: THA GARNER on 11/11/22 0013 Review of Systems Review of Systems Constitutional: chills, diaphoresis EENTM: no symptoms reported Respiratory: cough, phlegm; No short of breath Cardiovascular: No chest pain, No palpitations, No syncope Gastrointestinal: abdominal pain (diffuse tenderness to light palpation ); No diarrhea, No jaundice; loss of appetite, nausea; No vomiting Genitourinary: No decreased output, No dysuria, No frequency Musculoskeletal: back pain (intermittent left sided from hip to shoulder blade ) Skin: pruritus (diffuse abdominal wall ), rash (4 cm errythematous plaque under left breast ) Psychiatric/Neurological: Denies Headache, Denies Numbness, Denies Tingling, Denies Weakness Hematologic/Lymphatic: No Symptoms Reported Immunological/Allergic: see HPI (YIN BRAXTON) Past Rhxgddu-Fwmkdk-Rvalnz Hx Patient Social History Tobacco Use?: No Substance use?: No Alcohol Use?: Yes Alcohol Frequency: Once in a while (YIN BRAXTON) Immunizations Up To Date Tetanus Booster (TDap): Unknown First/Initial COVID19 Vaccinat: none (SAUCE,YIN) Seasonal Allergies Seasonal Allergies: Yes (SAUCE,YIN) Past Medical History Surgery/Hospitalization HX: hernia repair Surgeries: Yes (wisdom teeth) Appendectomy, Gallbladder Respiratory: Yes (USES INHALER) Asthma Cardiac: No Neurological: No Female Reproductive Disorders: Polycystic Ovarian Dis Sexually Transmitted Disease: No Genitourinary: No Gastrointestinal: Yes (GALLBLADDER PAIN, VENTRAL/INCISIONAL) Gall Bladder Disease Musculoskeletal: Yes (PINKY) Fractures Endocrine: No HEENT: Yes (WEARS GLASSES) Cancer: No Psychosocial: Yes Anxiety Integumentary: No Blood Disorders: No (SAUCE,YIN) Family Medical History No Pertinent Family Hx, COPD, Stroke (SAUCE,YIN) Physical Exam Vital Signs - First Documented 11/25/22 19:38 Temp 37.3 Pulse 119 Resp 18 B/P (MAP) 136/81 (99) Pulse Ox 96 O2 Delivery Room Air (NAKIA WHITTAKER MD) Capillary Refill : Less Than 3 Seconds (SAUCE,YIN) Height: 5'7.00" Weight: 283lbs. 0.0oz. 128.859039ur; 50.00 BMI Method:Stated General Appearance: WD/WN, no apparent distress Eyes: Bilateral Eye PERRL, Bilateral Eye EOMI HEENT: normal ENT inspection, pharyngeal erythema (mild ) Neck: non-tender, supple, normal inspection Respiratory: chest non-tender, lungs clear, normal breath sounds, no respiratory distress, no accessory muscle use Cardiovascular: no murmur, tachycardia; No extra beats Gastrointestinal: soft, no organomegaly, no pulsatile mass, tenderness (diffuse ) Extremities: non-tender, normal inspection, no calf tenderness, normal capillary refill Neurologic/Psychiatric: alert, normal mood/affect, oriented x 3 Skin: normal color, warm/dry, rash (under left breast ) Lymphatic: no adenopathy (SAUCE,YIN) Progress/Results/Core Measures Suspected Sepsis SIRS Temperature: Pulse: 119 Respiratory Rate: 18 Blood Pressure 136 /81 Mean: 99 (SAUCE,YIN) Results/Orders Lab Results Laboratory Tests Test 11/25/22 21:33 Range/Units Urine Color YELLOW Urine Clarity SL CLOUDY Urine pH 6.5 5-9 Urine Specific [place] 1.025 H 1.016-1.022 Urine Protein NEGATIVE NEGATIVE Urine Glucose (UA) NEGATIVE NEGATIVE Urine Ketones NEGATIVE NEGATIVE Urine Nitrite NEGATIVE NEGATIVE Urine Bilirubin NEGATIVE NEGATIVE Urine Urobilinogen 1.0 < = 1.0 MG/DL Urine Leukocyte Esterase NEGATIVE NEGATIVE Urine RBC (Auto) NEGATIVE NEGATIVE Urine RBC NONE /HPF Urine WBC 2-5 /HPF Urine Squamous Epithelial Cells 0-2 /HPF Urine Renal Epithelial Cells NONE /HPF Urine Crystals NONE /LPF Urine Bacteria LARGE H /HPF Urine Casts NONE /LPF Urine Mucus NEGATIVE /LPF Urine Culture Indicated YES (NAKIA WHITTAKER MD) My Orders Orders - NAKIA WHITTAKER MD Chest Pa/Lat (2 View) (11/25/22 20:34) Ua Culture If Indicated (11/25/22 20:34) Urine Culture (11/25/22 21:33) (NAKIA WHITTAKER MD) Vital Signs/I&O 11/25/22 19:38 Temp 37.3 Pulse 119 Resp 18 B/P (MAP) 136/81 (99) Pulse Ox 96 O2 Delivery Room Air (NAKIA WHITTAKER MD) Vital Signs/I&O Capillary Refill : Less Than 3 Seconds (YIN BRAXTON) Blood Pressure Mean: 99 Progress Note : Time: 22:11 Progress Note Patient seen and evaluated by me, I reviewed the medical student's history and physical exam and agree. My findings are as follows. 27-year-old female postop 4 days ventral incisional hernia repair. Patient has had some mild nausea decreased bowel movement, mild cough, low-grade fever. Presents for evaluation after surgeon stated to her if she had any fever she sh ould come to the ER. Exam is unremarkable, abdomen is appropriately tender, incision sites look well. Lungs are clear, she is slightly tachycardic here but afebrile. Urine and chest x-ray are evaluated, urine has 3+ bacteria without nitrite or excessive leukocyte Estrace. She is asymptomatic of urinary tract infection. She is not hypoxic. No concerns for flu or COVID. Clinically looks well, nontoxic. Advised conservative therapy for the next 24 to 48 hours. She has a follow-up appointment scheduled on . Told her she should likely call Dr. Andrea's office tomorrow and let them know she was in the ER. Return precautions provided. If any worsening she needs to call or return to the emergency room this evening. She verbalized understanding of the plan of care and is comfortable with plan of care. All questions are sought and answered. (NAKIA WHITTAKER MD) Diagnostic Imaging Diagonstic Imaging: Xray Plain Films/CT/US/NM/MRI: chest Comments [facility] [place], [place] NAME: [facility] REC#: [id number] PT STATUS: REG ER : 1995 PHYSICIAN: NAKIA WHITTAKER MD ADMIT DATE: 11/25/22/ER Signed Date of Exam:11/25/22 CHEST PA/LAT (2 VIEW) Indication: Postop fever. Time of Exam: 9:02 PM No prior studies are available for comparison. Findings: The heart size is normal. The pulmonary vascularity is unremarkable. The lungs are clear. No infiltrate, effusion or pneumothorax is detected. Impression: No acute cardiopulmonary process is detected. Dictated by: Dictated on workstation # [id number] Dict: 11/25/222099 Trans: 11/25/222108 [facility] [id number] Interpreted by: SPIKE GUSMAN MD Electronically signed by: SPIKE GUSMAN MD 11/25/222108 (NAKIA WHITTAKER MD) Departure Impression Primary Impression: Postoperative nausea Disposition: 01 HOME, SELF-CARE Condition: Stable Departure-Patient Inst. Decision time for Depature: 22:15 (NAKIA WHITTAKER MD) Referrals: [facility] (PCP/Family) Primary Care Physician Patient Instructions: Contact Dermatitis (DC), Nausea and Vomiting, Adult ED Add. Discharge Instructions: Drink plenty of fluids to stay well hydrated. Alternate tylenol and Ibuprofen as needed. Zofran for nausea every 8 hours as needed. If you have a return of fever (over 101) worsening nausea/vomiting, pain or any other emergent, concerning symptoms - please return to the ER for re-evaluation. Call Dr Andrea's office tomorrow to let them know you were in the ER. You can use a little Cortisone cream (from over the counter) on the rash to your abdomen - this should help it improve - follow packaging instructions. Copy Copies To 1: SAMUEL REY DO Copies To 2: VIDAL ANDREA DO YIN BRAXTON Nov 25, 2022 20:27 NAKIA WHITTAKER MD Nov 25, 2022 21:23
--- NOTE | 2022-11-25 21:05 | Diagnostic Imaging Report ---
Indication: Postop fever. Time of Exam: 9:02 PM No prior studies are available for comparison. Findings: The heart size is normal. The pulmonary vascularity is unremarkable. The lungs are clear. No infiltrate, effusion or pneumothorax is detected. Impression: No acute cardiopulmonary process is detected. Dictated by: Dictated on workstation # [id number]
[2022-11-25 21:39] LABS: BILIRUBIN,URINE NEGATIVE (NEGATIVE); CLARITY,URINE SL CLOUDY; COLOR,URINE YELLOW; GLUCOSE, URINE (UA) NEGATIVE (NEGATIVE); KETONES,URINE NEGATIVE (NEGATIVE); LEUKOCYTE ESTERASE ,URINE NEGATIVE (NEGATIVE); NITRITE,URINE NEGATIVE (NEGATIVE); PH,URINE 6.5 (5-9); PROTEIN,URINE NEGATIVE (NEGATIVE)
[2022-11-25 21:46] LABS: BACTERIA,URINE LARGE /HPF; SQUAMOUS EPITHELIAL CELL,UR 0-2 /HPF
[2022-11-25] MEDS ORDERED: RX-ONDANSETRON 4 MG ODT (ZOFRAN) PPK #4 PO STA (22:18)
[2022-11-25 22:29] VITALS: BP 127/84
== END 2022-11-25 22:31 | disposition home or self-care (01) ==
LOC: EDUNIT# 19:20 → ER 19:21
DX: R11.0 Nausea (principal); R00.0 Tachycardia, unspecified; Z48.815 Encounter for surgical aftercare following surgery on the digestive system; Z28.310 Unvaccinated for COVID-19
CPT/HCPCS: 71046; 81000; 87088

== ENCOUNTER → 2023-09-01 | Outpatient (CLI) | payer SELFPAY ==
[~2023-09-01] MED LIST changes: +BARIUM SUSPENSION 2.1% (VANILLA SILQ) 450 ML PO ONE; +CATHETER FLUSH 10 ML SYR IV PRN; +HOLD METFORMIN - RECEIVED CONTRAST 20 ML VIAL IV SCH; +IOHEXOL 350 MG/ML 100 ML (OMNIPAQUE 350) VIAL IV ONE; +NS 100 ML (IVPB) BAG IV ONE
--- NOTE | 2023-09-01 09:31 | Diagnostic Imaging Report ---
EXAMINATION: CT abdomen and pelvis with intravenous contrast. TECHNIQUE: Multiple contiguous axial images were obtained through the abdomen and pelvis after the uneventful administration of intravenous contrast. All CT scans use one or more of the following dose optimizing techniques: automated exposure control, MA and/or KvP adjustment based on patient size and exam type or iterative reconstruction. HISTORY: Incisional hernia COMPARISON: 04/21/2019 FINDINGS: Limited views of the lower thorax are unremarkable. The liver is normal without focal lesion. There is no biliary ductal dilation. Gallbladder is absent. Pancreas is normal. Spleen is normal. Adrenal glands are normal. The kidneys are normal. There is no hydronephrosis. Urinary bladder is normal. Bowel is normal in caliber without obstruction or inflammation. There is a fat-containing ventral abdominal hernia. No stranding within the hernia sac. The mouth measures 4.1 cm. No free fluid or air. No abdominal or pelvic lymphadenopathy. Aorta is normal in caliber without aneurysm. There are no suspicious osseus lesions. IMPRESSION: 1. Moderate-sized ventral abdominal hernia containing fat without internal stranding. Dictated by: Dictated on workstation # [id number]
== END ==
LOC: RAD 08:30
PROVIDERS: ATTEND Surgery
DX: K43.2 Incisional hernia without obstruction or gangrene (principal); K43.9 Ventral hernia without obstruction or gangrene
CPT/HCPCS: 74177

== ENCOUNTER 2023-09-30 05:22 | Outpatient (CLI) | payer SELFPAY ==
[~2023-09-30] VITALS: Ht 170.2 cm; Wt 150.0 kg
[~2023-09-30 05:22] MED LIST changes: -BARIUM SUSPENSION 2.1% (VANILLA SILQ) 450 ML PO ONE; -CATHETER FLUSH 10 ML SYR IV PRN; -HOLD METFORMIN - RECEIVED CONTRAST 20 ML VIAL IV SCH; -IOHEXOL 350 MG/ML 100 ML (OMNIPAQUE 350) VIAL IV ONE; -NS 100 ML (IVPB) BAG IV ONE
[2023-09-30] MEDS ORDERED: ACET-2267 PO (16:50)
[2023-09-30] MEDS ORDERED: MONT-40 PO (16:50)
[2023-09-30] MEDS ORDERED: IPRA4AER IH (16:50)
[2023-09-30] MEDS ORDERED: RT-ALBUINH INH (16:50)
[2023-10-08] MEDS ORDERED: ACHYD1T PO (10:43)
== END 2023-09-30 17:11 | disposition home or self-care (01) ==
LOC: PREOP 05:22
PROVIDERS: ATTEND Surgery
DX: Z01.818 Encounter for other preprocedural examination (principal)

== ENCOUNTER 2023-10-07 06:47 | Day surgery (SDC) | payer SELFPAY ==
[2023-10-07] VITALS (11 sets, daily range): BP systolic 123–149; BP diastolic 60–85
[~2023-10-07] VITALS: Ht 170.2 cm; Wt 163.6 kg
[~2023-10-07 06:47] MED LIST changes: +ACET-2267 PO; +IPRA4AER IH; +MONT-40 PO
[2023-10-07] MEDS ORDERED: ceFAZolin INJECTION 3,000 MG in NS (IVPB) 100 ML 100 ML IV SCH (07:30)
[2023-10-07] MEDS ORDERED: ceFAZolin INJECTION 3,000 MG in NS (IVPB) 100 ML 100 ML IV ONE (07:30)
[2023-10-07] MEDS ORDERED: LIDOCAINE 2% w/EPI 1:100,000 20 ML VIAL ONE (07:33)
[2023-10-07] MEDS ORDERED: MIDAZOLAM INJ 2 MG/2 ML VIAL ONE (07:36)
[2023-10-07] MEDS ORDERED: ONDANSETRON INJECTION 4 MG/2 ML (SDV) ONE (07:36)
[2023-10-07] MEDS ORDERED: proPOfol INJECTION 200 MG/20 ML VIAL IV ONE (07:36)
[2023-10-07] MEDS ORDERED: fentaNYL INJECTION 100 MCG/2 ML VIAL ONE (07:36)
[2023-10-07] MEDS ORDERED: LIDOCAINE PF 2% 5 ML VIAL ONE (07:36)
[2023-10-07] MEDS ORDERED: SEVOFLURANE (ULTANE) 15 ML INHAL SOLN ONE (07:36)
[2023-10-07] MEDS: LACTATED RINGERS 1,000 ML 1,000 ML IV PRN ×2 (07:56→09:49)
[2023-10-07] MEDS ORDERED: IPRA3AMP31 IH (08:09)
[2023-10-07] MEDS ORDERED: ALBU2.5V4 INH (08:11)
--- NOTE | 2023-10-07 08:19 | Progress Note-Pre Operative ---
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
[2023-10-07] MEDS ORDERED: dexAMETHasone INJ 10 MG/ML 1 ML VIAL ONE (09:18)
[2023-10-07] MEDS ORDERED: ROCURONIUM 50 MG/5 ML VIAL IV ONE ×2 (09:35→11:32)
[2023-10-07] MEDS ORDERED: HYDROmorphone INJECTION 2 MG/ML VIAL ONE (09:57)
[2023-10-07] MEDS ORDERED: ceFAZolin INJECTION 2,000 MG ONE (12:18)
[2023-10-07] MEDS ORDERED: ceFAZolin INJECTION 1,000 MG ONE (12:19)
[2023-10-07] MEDS ORDERED: SUGAMMADEX INJ 100 MG/ML 5 ML VIAL IV ONE (13:14)
[2023-10-07] MEDS ORDERED: HYDROmorphone INJECTION 2 MG/ML VIAL IV ONE (14:00)
[2023-10-07] MEDS ORDERED: ONDANSETRON INJECTION 4 MG/2 ML (SDV) IVP PRN ×2 (14:00→14:30)
[2023-10-07] MEDS ORDERED: morphine INJ 10 MG/ML 1ML (SYR OR VIAL) IVP ONE (14:00)
[2023-10-07] MEDS ORDERED: morphine INJ 10 MG/ML 1ML (SYR OR VIAL) ONE (14:09)
[2023-10-07] MEDS ORDERED: morphine INJ 4 MG/ML 1 ML (VIAL/SYRINGE) IVP PRN (14:30)
--- NOTE | 2023-10-07 14:52 | Anesthesia-General Post-Op ---
General Patient Condition Mental Status/LOC: Same as Preop Cardiovascular: Satisfactory Nausea/Vomiting: Absent Respiratory: Satisfactory Pain: Controlled Complications: Absent Post Op Complications Complications None Follow Up Care/Instructions Patient Instructions None needed. Anesthesia/Patient Condition Patient Condition Patient was just discharged from PACU to the floor and she is doing well, no complaints, stable vital signs, no apparent adverse anesthesia problems. No complications reported per nursing. DAYANA WOOTEN DO Oct 07, 2023 14:51
[2023-10-07] MEDS: LACTATED RINGERS 1,000 ML 1,000 ML IV SCH ×2 (15:04→21:10)
[2023-10-07] MEDS: HYDROcodone/ACETAMINOPHEN 10/325 TABLET PO PRN ×2 (15:04→19:57)
--- NOTE | 2023-10-07 16:43 | Progress Note-Post Operative ---
Post-Operative Progess Note Surgeon (s)/Recyclable Products Sorter (s) Surgeon VIDAL ANDREA DO Recyclable Products Sorter: Yang Pre-Operative Diagnosis Recurrent Incarcerated Ventral Hernia Post-Operative Diagnosis same Procedure & Operative Findings Date of Procedure 10/07/23 Procedure Performed/Findings Laparoscopic Total Abdominal Retrorectus myofascial release with primary repair of hernia and mesh placement Procedure: After informed consent was obtained, the patient was brought to the operating room. She was placed on the table in supine position; the bed was flexed down and slightly rotated to the right. She was then sterilely prepped and draped in normal fashion. The bed was flexed to about 9 degrees. I then used a Veress needle in the left upper quadrant, advanced slowly tested with saline and once I was in then hooked up the Pneumo- peritoneum. Once the pressure was at 15mm, I made an 8mm incision and advanced the robotic trocar slowly with the visiport. Watched as I went layer by layer and then able to get into the abdomen. I then placed two more 8mm robotic ports as far lateral outside the semi-lunaris line to get into the abdomen. The robot was then docked and began by taking down all of the adhesions and contents out of the hernia defect. Laparoscopic instruments were inserted under direct visualization, the Mobi[employer] grasper in the left hand and scissors in the right. The defect measured about 5.2cm across and 9.1 cm vertically; this included the umbilical hernia defect. I then proceeded to the robotic console. Used the scissors to dissect into the Left retromuscular space, just medial to the semi- lunaris line. I went superiorly to the costal margin and inferiorly below the arcuate line into the preperitoneal plane contiguous with the space of Retzius for at least 8 cm caudad and cephalad to the defect. Dissected the retro- rectus space right on the fascia, pushing the fat and vessels up and going through all the diaphonous tissue and working toward the midline. I was doing this myofascial release to help with a tension-free closure creating these muscle flaps allowing them to relax. By going medial with this dissection from the linea semilunaris, I was maintaining the laterally perforating neurovascular bundles. As in the open technique, there is at least one large rn informatics medially in the superior third of the dissection that needs to be sac rificed, and the inferior one-third dissection is also notable for exposure of the inferior epigastric vessels coursing cephalad. Then started to dissect across the midline in the upper abdomen. The medial edge of the posterior rectus sheath was then divided before it inserts into the linea alba; about 0.5 to 1cm. This allows entrance into the preperitoneal fat plane beneath the linea alba. This dissection is most easily initiated well above and below the midline fascial defect to take advantage of the robust preperitoneal fat and associated peritoneum in virgin areas of the midline. As I worked towards the umbilicus I encountered the large incarcerated incisional hernia. I was able to stay in the preperitoneal space and pictures were taken. I was able to take everything down, I then decided to perform the right sided muscular flap again going just lateral to the linea alba about 1 cm getting into the right posterior rectus sheath extending this superiorly and inferiorly. Starting inferiorly and working my way superiorly to create this muscle flap on the right to again give a space to completely dissect this free. Once I had everything freed up, I then started closing the defect using 0 Strattafix suture (two 18 inch sutures,one from caudad and one from cephalad); running but not tightening it down and then slowly cinching it down like a corset bringing it together. Once this was closed, I then placed a Parietene light weight macroporous mesh, [id number]; cut to fit in the space. I took a picture of this and then closed the the opening to the retrorectus space on the left side with a 180 day 2-0 V-lock suture; came together nicely. I then carefully allowed the pneumoperitoneum to deflate and watched the mesh stayed in position directly filling up the space completely. I pulled out all of the ports and then closed all incisions with 4-0 Monocryl and Dermabond. A dressing was placed. The patient tolerated the procedure. Sponge and needle count correct at the end of the case. Dr. Soria assisted in this case helping to make incisions, close incisions, identify anatomy, pass suture. Anesthesia Type GET Estimated Blood Loss Estimated blood loss (mL): less than 10 ml Specimens/Packing Specimens Removed none VIDAL ANDREA DO Oct 07, 2023 16:43
[2023-10-07] MEDS: ceFAZolin INJECTION 3,000 MG in NS (IVPB) 100 ML 100 ML IV SCH (17:06)
[2023-10-08] VITALS: BP 124/63
[2023-10-08] MEDS: ceFAZolin INJECTION 3,000 MG in NS (IVPB) 100 ML 100 ML IV SCH (00:01)
[2023-10-08 03:03] VITALS: BP 117/72
[2023-10-08] MEDS: HYDROcodone/ACETAMINOPHEN 10/325 TABLET PO PRN ×2 (03:43→11:28)
[2023-10-08 07:24] VITALS: BP 123/65
[2023-10-08] MEDS ORDERED: PANTOPRAZOLE INJECTION 40 MG VIAL IVP SCH (09:00)
[2023-10-08] MEDS ORDERED: ACHYD1T PO (10:43)
--- NOTE | 2023-10-08 10:45 | Discharge Inst-Surgical ---
Discharge Inst-Surgical Depart Medication/Instructions New, Converted or Re-Newed RX: Transmitted to Pharmacy Patient Instructions Follow up Appt: Make appointment for 1 week. [phone] Instructions: No lifting greater than 20 pounds. No strenuous activity. May shower in 24 hours, no tub bath or soaking. Use incentive spirometer at home as directed. No Smoking Skin/Wound Care: May remove bandages in am. You need to leave the Dermabond on incision it will fall off on it's own. Symptoms to Report: Appetite Changes, Extremity Discoloration, Numbness/Tingling, Swelling Increased, Bleeding Excessive, Eyesight Changes, Pain Increased, Urine Color Change, Constipation(Persistent), Fever over 101 degree F, Pain/Pressure in chest, Urinating Difficulty, Cough Up/Vomit Blood, Heart Beat Irreg/Pounding, Pain/Pressure in jaw, Cramps in feet or legs, Lightheadedness, Pain/Pressure in shoulder, Diarrhea(Persistent), Memory Changes Suddenly, Questions/Concerns, Weight gain consecutive days, Dizziness/Fainting, Nausea/Vomiting, Shortness of Breath, Weight gain over 2 pounds If questions or concerns contact your physician Or seek help at emergency department. Activity Activity as Tolerated: Yes Activity Instructions: Avoid Stress to Incision Driving Instructions: No Driving/Refer to Dr. Garcia Discharge Diet: No Restrictions Diet After 24 Hours: Clear Liquid if Nauseous If Any Problems/Questions/Issu: Contact Your Physician, Go to Emergency Room Skin/Wound Care Infection Signs and Symptoms: Increased Redness, Foul Odor of Wound, Increased Drainage, Skin Itchy or Has a Rash, Increased Swelling, Temperature Above 101 F Bathing Instructions: Shower Stitches/[place]/Dermabond Dis: VIDLA Egan DO Oct 08, 2023 10:45
--- NOTE | 2023-10-08 10:47 | Progress Note - Surgery ---
Subjective Time Seen by a Provider: 10:31 Subjective/Events-last exam Pt seen and examined, states minimal pain (controlled) and she is tolerating diet. She wants to go home. Review of Systems Pulmonary: No Dyspnea, No Cough Cardiovascular: No: Chest Pain, Palpitations Gastrointestinal: Abdominal Pain; No: Nausea, Vomiting Objective Exam Vital Signs Date Time Temp Pulse Resp B/P (MAP) Pulse Ox O2 Delivery O2 Flow Rate FiO2 10/08/23 07:56 95 Room Air 10/08/23 07:24 35.8 98 16 123/65 (84) 95 Room Air 10/08/23 03:03 36.0 96 18 117/72 (87) 96 Room Air 10/08/23 00:00 35.9 95 18 124/63 (83) 97 Room Air 10/07/23 20:24 Room Air 10/07/23 19:02 36.0 104 19 130/61 (84) 95 Room Air 10/07/23 16:10 36.8 115 19 127/64 (85) 91 Room Air 10/07/23 15:52 91 Room Air 10/07/23 15:15 36.8 115 19 127/64 (85) 91 Room Air 10/07/23 14:45 Room Air 10/07/23 14:40 36.9 16 123/66 (85) 93 Room Air 10/07/23 14:30 Room Air 10/07/23 14:30 16 126/74 (91) 93 Room Air 10/07/23 14:30 Room Air 10/07/23 14:20 18 132/84 (100) 96 OxyMask 2.00 10/07/23 14:15 OxyMask 2.00 10/07/23 14:10 18 133/63 (86) 97 OxyMask 2.00 10/07/23 14:00 OxyMask 3.00 10/07/23 14:00 20 140/60 (86) 98 OxyMask 3.00 10/07/23 13:50 20 149/68 (95) 96 OxyMask 4.00 10/07/23 13:46 37.5 16 129/76 (93) 99 OxyMask 6.00 10/07/23 13:46 OxyMask 6.00 I & O 10/08/23 06:59 Intake Total 7550 ml Balance 7550 ml Capillary Refill : General Appearance: No Apparent Distress, Obese Respiratory: Lungs Clear, Normal Breath Sounds, No Accessory Muscle Use, No Respiratory Distress Cardiovascular: Regular Rate, Rhythm, No Murmur Gastrointestinal: soft, no organomegaly, other (incisions c/d/i) Results Lab Microbiology 10/07/23 MRSA Screen - Final, Complete MRSA not isolated Assessment/Plan Assessment/Plan Assessment/Plan S/P MAGDALENA Retrorectus myofascial release Tolerating diet and pain controlled, will d/c home VIDAL ANDREA DO Oct 08, 2023 10:47
[2023-10-08] MEDS ORDERED: diphenhydrAMINE 25 MG TABLET PO NR (11:30)
[2023-10-08] MEDS ORDERED: diphenhydrAMINE 25 MG TABLET PO ONE (11:45)
[2023-10-08 12:45] VITALS: BP 123/65
== END 2023-10-08 12:45 | disposition home or self-care (01) ==
LOC: SDC 06:47 → 4TH 14:00 → SDC 10-08 12:45
PROVIDERS: ATTEND Surgery
DX: K43.0 Incisional hernia with obstruction, without gangrene (principal); E66.01 Morbid (severe) obesity due to excess calories; Z68.43 Body mass index [BMI] 50.0-59.9, adult
CPT/HCPCS: 84703; 87081; 94664